=== PATIENT | female | born 1975 ===

== ENCOUNTER 2017-11-11 15:51 | Emergency (ER) | payer MEDICAID ==
[2017-11-11 15:51] VITALS: BMI 44.2
[2017-11-11 16:21] VITALS: BP 109/74; PULSE 91; RESP 18; TEMP 98; O2SAT 98
--- NOTE | 2017-11-11 17:15 | ED PDOC ---
HPI: Back Time Seen by Provider: 11/11/17 16:29 Chief Complaint (Nursing): Lower Extremity Problem/Injury Chief Complaint (Provider): Back Pain, Toe Pain History Per: Patient History/Exam Limitations: no limitations Onset/Duration Of Symptoms: Days (x 1 week) Current Symptoms Are (Timing): Still Present Additional Complaint(s): Patient presents complaining of pain to the left great toe, and is unsure if trauma occurred. Reports occasional numbness to the toe, and has history of diabetes and chronic neuropathy in this foot. Otherwise: (-) redness, (-) swelling, (-) fever. Patient also complaining of low back pain for 1 week, radiating down left buttock and leg. Otherwise: (-) paresthesias, (-) weakness , (-) abdominal pain, (-) urinary symptoms, (-) acute bowel or bladder dysfunction. PMD: [facility] Past Medical History Reviewed: Historical Data, Nursing Documentation, Vital Signs Vital Signs: Last Vital Signs Temp 98 F 11/11/17 16:18 Pulse 91 H 11/11/17 16:18 Resp 18 11/11/17 16:18 BP 109/74 11/11/17 16:18 Pulse Ox 98 11/11/17 16:18 - Medical History PMH: Asthma, COPD, Depression, Diabetes (type II), HTN, Hypercholesterolemia, Hypothyroidism Denies: Chronic Kidney Disease - Surgical History Surgical History: Cholecystectomy, (x1) - Family History Family History: States: Unknown Family Hx - Social History Current smoker - smoking cessation education provided: Yes Alcohol: None Drugs: Denies - Home Medications Home Medications: Ambulatory Orders Medication Instructions Recorded Aspirin [Aspirin EC] 81 mg PO QPM 05/15/15 Clopidogrel [Plavix] 75 mg PO QPM 05/15/15 Hydrochlorothiazide [HCTZ] 25 mg PO QPM 05/15/15 Sitagliptin Phosphate [Januvia] 100 mg PO QPM 05/15/15 Albuterol HFA [Ventolin HFA 90 2 puff IH Q6H PRN 08/29/16 mcg/actuation (8 g)] Empagliflozin [Jardiance] 10 mg PO QPM 08/29/16 Fenofibrate,Micronized [Lofibra] 134 mg PO QPM 08/29/16 Gabapentin [Neurontin] 900 mg PO HS 08/29/16 Gemfibrozil 600 mg PO BID 08/29/16 Insulin Glargine,Hum.rec.anlog 55 unit SC DAILY 08/29/16 [Jordonnonajoanne Jamesmarixachantale] Benton-3 Fatty Acids/Fish Oil [Fish 1 gm PO QPM 08/29/16 Oil 1,000 mg Capsule] Simvastatin [Zocor] 40 mg PO QPM 08/29/16 Tiotropium [Spiriva] 18 mcg IH DAILY 08/29/16 amLODIPine [Norvasc] 10 mg PO QPM 08/29/16 Insulin Lispro [humALOG] 20 unit SC ACTID #0 08/30/16 Lidocaine 5% [Lidoderm] 1 ea TD DAILY PRN #30 patch 09/18/16 Methocarbamol [Robaxin] 500 mg PO Q8 PRN #30 tab 09/18/16 Tramadol HCl [Ultram] 50 mg PO BID PRN #30 tablet 09/18/16 Cyclobenzaprine [Cyclobenzaprine 10 mg PO TID PRN #15 tab 11/11/17 HCl] Meloxicam [Mobic] 15 mg PO DAILY PRN #30 tab 11/11/17 - Allergies Allergies/Adverse Reactions: Allergies Allergy/AdvReac Type Severity Reaction Status Date / Time Penicillins Allergy ANAPHYLAXIS Verified 08/29/16 15:15 Review of Systems ROS Statement: Except As Marked, All Systems Reviewed And Found Negative Constitutional: Negative for: Fever Genitourinary Female: Negative for: Incontinence Musculoskeletal: Positive for: Back Pain (left lower, radiating down left leg), Foot Pain (left toe pain) Skin: Negative for: Rash, Other (swelling) Neurological: Positive for: Numbness (to left toe). Negative for: Weakness, Other (paresthesias) Physical Exam - Reviewed Nursing Documentation Reviewed: Yes Vital Signs Reviewed: Yes - Physical Exam Comments: GENERAL APPEARANCE: Patient is awake, alert, oriented x 3, in no acute distress. SKIN: Warm, dry; (-) cyanosis. EYES: (-) conjunctival pallor. ENMT: Mucous membranes moist. NECK: (-) tenderness, (-) stiffness, (-) lymphadenopathy. CHEST AND RESPIRATORY: (-) rales, (-) rhonchi, (-) wheezes; breath sounds equal bilaterally. HEART AND CARDIOVASCULAR: (-) irregularity; (-) murmur, (-) gallop. ABDOMEN AND GI: Soft; (-) tenderness; (-) palpable mass. BACK: (+) tenderness to lumbar spine and L paralumbar, (-) deformity. Straight leg raising (-) bilaterally. EXTREMITIES: (+) Tenderness to left buttock, (+) Tenderness to left great toe; (+) Normal ROM, (-) edema, (-) deformity. Distal pulses good bilaterally. NEURO AND PSYCH: Mental status as above. Intact sensation bilaterally; normal strength in extension of the knees, plantar and dorsiflexion of the toes. DTRs symmetric. - ECG O2 Sat by Pulse Oximetry: 98 (RA) Pulse Ox Interpretation: Normal Medical Decision Making Medical Decision Making: Time: 16:57 Initial Plan: --X-Ray LS Spine --X-Ray Left Foot XR SPINE: +osteopenia of L5, no fracture, no dislocation, as read by PA. XR LEFT FOOT: no fracture, no dislocation, as read by PA. Patient advised that official radiology read of XR is still pending and will call the patient if there is any discrepancy within 24 hours. XR results d/w the patient. Diagnosis of sciatica and L foot pain, likely due to DM neuropathy d/w the patient. Advised to follow up with primary care physician in 1-2 days without fail. Advised to take medication as prescribed. Return to the emergency room at any time for any new or worsening symptoms. Patient states she fully agrees with and understands discharge instructions. States that she agrees with the plan and disposition. Verbalized and repeated discharge instructions and plan. I have given the patient opportunity to ask any additional questions. Scribe Attestation: Documented by Antonia Cohen, acting as a scribe for Emeli Romeo PA-C Provider Scribe Attestation: All medical record entries made by the Scribe were at my direction and personally dictated by me. I have reviewed the chart and agree that the record accurately reflects my personal performance of the history, physical exam, medical decision making, and the department course for this patient. I have also personally directed, reviewed, and agree with the discharge instructions and disposition. Disposition - Clinical Impression Clinical Impression: Sciatica, Foot pain, left - Patient ED Disposition Is Patient to be Admitted: No Counseled Patient/Family Regarding: Studies Performed, Diagnosis, Need For Followup, Rx Given - Disposition Disposition: Routine/Home Disposition Time: 18:10 Condition: STABLE Additional Instructions: Thank you for letting us take care of you today. You were treated for sciatica, L foot pain, likely DM neuropthay. The emergency medical care you received today was directed at your acute symptoms. If you were prescribed any medication , please fill it and take as directed. It may take several days for your symptoms to resolve. Return to the Emergency Department if your symptoms worsen , do not improve, or if you have any other problems. Please contact your doctor in 2 days for re-evaluation and follow up. Bring any paperwork you were given at discharge with you along with any medications you are taking to your follow up visit. Our treatment cannot replace ongoing medical care by a primary care provider (PCP) outside of the emergency department. Thank you for allowing the [facility] team to be part of your care today. Prescriptions: Cyclobenzaprine [Cyclobenzaprine HCl] 10 mg PO TID PRN #15 tab PRN Reason: Muscle Spasm Meloxicam [Mobic] 15 mg PO DAILY PRN #30 tab PRN Reason: Pain, Moderate (4-7) Instructions: Sciatica, Diabetic Neuropathy (DC) Forms: [employer] (Irish), [facility] ED School/Work Excuse
--- NOTE | 2017-11-11 18:33 | RAD ---
PROCEDURE: Radiographs of the Lumbar Spine. HISTORY: pain COMPARISON: Lumbar spine radiographs 09/18/2016. FINDINGS: BONES: Normal lumbar curvature is preserved. There is no interval fracture or spondylolisthesis identified. No destructive bony lesion is evident. Diffuse osteopenia suggests osteoporosis. DISC SPACES: Apparent disc height loss is unchanged at L5-S1 remaining moderate with moderate L4-5 disc height loss now evident. OTHER FINDINGS: None. IMPRESSION: Limited degenerative disease L4-5 and L5-S1 without interval fracture or spondylolisthesis evident. Diffuse osteopenia suggests osteoporosis.
--- NOTE | 2017-11-11 18:34 | RAD ---
PROCEDURE: Left Foot Radiographs. HISTORY: pain COMPARISON: None. FINDINGS: BONES: Diffuse osteopenia suggests osteoporosis. No acute fractures identified or destructive bony lesion evident. JOINTS: Joint space narrowing and cortical sclerosis appreciate throughout the interphalangeal joints diffusely with similar pattern present at the midfoot and hindfoot joints diffusely, as well as the 1st metatarsophalangeal joint. . SOFT TISSUES: A small plantar calcaneal spurs identified. OTHER FINDINGS: None. IMPRESSION: No acute fracture, subluxation or dislocation. Relatively diffuse degenerative changes are noted as discussed above. Small plantar calcaneal spur noted.
== END 2017-11-11 18:48 | disposition home or self-care (01) ==
LOC: H.ER 15:51
DX: M54.42 Lumbago with sciatica, left side (principal); M79.672 Pain in left foot; E03.9 Hypothyroidism, unspecified; E11.9 Type 2 diabetes mellitus without complications; E78.00 Pure hypercholesterolemia, unspecified; F32.9 Major depressive disorder, single episode, unspecified; I10 Essential (primary) hypertension; Z79.4 Long term (current) use of insulin; Z79.82 Long term (current) use of aspirin; Z88.0 Allergy status to penicillin

== ENCOUNTER 2017-11-25 11:56 | Emergency (ER) | payer MEDICAID ==
[2017-11-25 11:56] VITALS: BMI 44.2
[2017-11-25 12:21] VITALS: TEMP 97
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
--- NOTE | 2017-11-25 15:10 | RAD ---
PROCEDURE: Radiographs of the Chest and Left Ribs. HISTORY: pain COMPARISON: None available. TECHNIQUE: Frontal radiograph of the chest and multiple oblique radiographs of the left ribs were obtained. FINDINGS: LEFT RIBS: No fracture or focal lesion visualized. LUNGS: Clear. PLEURA: No pneumothorax or pleural fluid. CARDIOVASCULAR: Normal sized heart. No pulmonary vascular congestion. OTHER FINDINGS: None. IMPRESSION: Unremarkable radiographs of the chest and left ribs. No left rib fracture. Concordant results with the preliminary interpretation rendered by the emergency department physician procedure.
--- NOTE | 2017-11-25 15:11 | RAD ---
PROCEDURE: Radiographs of the Lumbar Spine. HISTORY: Pain. No history of recent/ related trauma provided COMPARISON: No prior. FINDINGS: BONES: Normal alignment. No listhesis. No fracture. DISC SPACES: Unremarkable. OTHER FINDINGS: None. IMPRESSION: Unremarkable radiographs of the lumbar spine.
[2017-11-25 15:16] VITALS: BP 115/80; PULSE 75; RESP 16
[2017-11-25 15:24] VITALS: O2SAT 99
== END 2017-11-25 15:44 | disposition home or self-care (01) ==
LOC: H.ER 11:56
DX: S20.212A Contusion of left front wall of thorax, initial encounter (principal); S39.012A Strain of muscle, fascia and tendon of lower back, initial encounter; X50.0XXA Overexertion from strenuous movement or load, initial encounter; Y92.89 Other specified places as the place of occurrence of the external cause; M54.30 Sciatica, unspecified side
CPT/HCPCS: 71101; 72100; 81025; 96372; 99282; J1885

== ENCOUNTER 2018-09-27 15:53 | Emergency (ER) | payer MEDICAID ==
[2018-09-27] MEDS ORDERED: Amoxicillin-Clav 875-125 mg Tab PO ONE (17:21)
[2018-09-27] MEDS ORDERED: Amoxicillin-Clav 875-125 mg Tab PO STA (17:21)
--- NOTE | 2018-09-27 17:22 | ED PDOC ---
HPI: Influenza Time Seen by Provider: 09/27/18 17:10 Chief Complaint: Flu-like Symptoms Chief Complaint (Provider): Flu-like Symptoms History Per: Patient Exam Limitations: no limitations Onset/Duration Of Symptoms: Days Symptoms include: fever, headache, sore throat, cough, nasal congestion, chest pain (tightness), difficulty breathing Additional complaint(s):: 42 y/o female presents to the ED for evaluation of flu-like symptoms. Patient reports of developing a headache associated with right sided ear pain, nasal congestion, shortness of breath, chest tightness, cough and sore throat yesterday. Otherwise, patient denies fever. PMD: [facility] Past Medical History Reviewed: Historical Data, Nursing Documentation, Vital Signs Vital Signs: Last Vital Signs Temp 98.3 F 09/27/18 16:20 Pulse 97 H 09/27/18 16:20 Resp 20 09/27/18 16:20 BP 123/78 09/27/18 16:20 Pulse Ox 100 09/27/18 16:20 - Medical History PMH: No Chronic Diseases - Surgical History Surgical History: No Surg Hx - Family History Family History: States: Unknown Family Hx - Home Medications Home Medications: Ambulatory Orders Medication Instructions Recorded Azithromycin [Z-Jude] 250 mg PO DAILY #6 tab 09/27/18 - Allergies Allergies/Adverse Reactions: Allergies Allergy/AdvReac Type Severity Reaction Status Date / Time Penicillins Allergy SWELLING Verified 09/27/18 16:20 Review of Systems ROS Statement: Except As Marked, All Systems Reviewed And Found Negative Constitutional: Negative for: Fever ENT: Positive for: Ear Pain (right sided), Nose Congestion, Throat Pain Cardiovascular: Positive for: Chest Pain (tightness) Respiratory: Positive for: Cough, Shortness of Breath Physical Exam - Reviewed Nursing Documentation Reviewed: Yes Vital Signs Reviewed: Yes - Physical Exam Appears: Positive for: Uncomfortable Head Exam: Negative for: NORMAL INSPECTION (Tenderness to palpation of the maxillary and frontal sinuses bilaterally) Skin: Positive for: Normal Color, Warm, Dry Eye Exam: Positive for: Normal appearance ENT: Positive for: TM Is/Are (LEFT: Light reflective positive, TMs intact. All landmarks visible and non-erythematous. RIGHT: Light reflective positive, TMs intact. All landmarks visible and non-erythematous.), Pharyngeal Erythema (right sided). Negative for: Tonsillar Exudate, Tonsillar Swelling Neck: Positive for: Normal, Painless ROM (Cervical Nodes at 0) Cardiovascular/Chest: Positive for: Regular Rate, Rhythm. Negative for: Murmur Respiratory: Positive for: Normal Breath Sounds (Lungs clear to auscultation in all 4 ribera. ). Negative for: Respiratory Distress Extremity: Positive for: Normal ROM. Negative for: Deformity Neurologic/Psych: Positive for: Alert, Oriented. Negative for: Motor/Sensory Deficits Medical Decision Making Medical Decision Making: Time: 1721 Impression: Sinusitis Plan: -- Tylenol 650 mg PO -- Motrin 600 mg PO -- Clindamycin 150 mg PO Scribe Attestation: Documented by Lupe Carver, acting as a scribe for Car Carrasquillo PA-C. Provider Scribe Attestation: All medical record entries made by the Scribe were at my direction and personally dictated by me. I have reviewed the chart and agree that the record accurately reflects my personal performance of the history, physical exam, medical decision making, and the department course for this patient. I have also personally directed, reviewed, and agree with the discharge instructions and disposition. - ECG O2 Sat by Pulse Oximetry: 100 Disposition - Clinical Impression Clinical Impression: Sinusitis - Patient ED Disposition Is Patient to be Admitted: No Doctor Will See Patient In The: Office Counseled Patient/Family Regarding: Diagnosis, Need For Followup, Rx Given - [facility] Disposition: Routine/Home Disposition Time: 17:51 Condition: STABLE Prescriptions: Azithromycin [Z-Jude] 250 mg PO DAILY #6 tab Instructions: Sinusitis in Adults, Sinusitis, Adult (DC) Forms: [employer] (Ugandan)
[2018-09-27 18:10] VITALS: BP 124/78; PULSE 72; RESP 18; TEMP 98.2; O2SAT 99
== END 2018-09-27 18:30 | disposition home or self-care (01) ==
LOC: MERGE 15:53 → H.ER 15:53
DX: J32.9 Chronic sinusitis, unspecified (principal); Z88.0 Allergy status to penicillin

== ENCOUNTER 2019-02-11 17:24 | Emergency (ER) | payer MEDICAID ==
[2019-02-11 17:25] VITALS: BMI 44.2
[2019-02-11 17:37] VITALS: TEMP 103
[2019-02-11] MEDS ORDERED: Sodium Chloride 0.9% 1,000 ML IV STA ×2 (18:13→19:06)
--- NOTE | 2019-02-11 18:21 | ED PDOC ---
HPI: Abdomen Time Seen by Provider: 02/11/19 17:51 Chief Complaint (Nursing): Abdominal Pain Chief Complaint (Provider): Abdominal Pain History Per: Patient History/Exam Limitations: no limitations Onset/Duration Of Symptoms: Days (x 2) Current Symptoms Are (Timing): Still Present Location Of Pain/Discomfort: Diffuse Quality Of Discomfort: "Pain" Associated Symptoms: Fever, Nausea, Vomiting Additional Complaint(s): 43 year old female presents to the ED for evaluation of abdominal pain. Patient is s/p gastric sleeve surgery on 02/02/2019. The surgery was performed by Dr. Hsu ([phone]) in [facility]. Yesterday she developed nausea and vomiting with pain. Patient reports she is unable to eat or drink anything without feeling nauseous. Offers no other medical complaints. PMD: Dr. Cespedes Past Medical History Reviewed: Historical Data, Nursing Documentation, Vital Signs Vital Signs: Last Vital Signs Temp 103 F H 02/11/19 17:32 Pulse 110 H 02/11/19 17:32 Resp 16 02/11/19 17:32 BP 96/62 L 02/11/19 17:32 Pulse Ox 97 02/11/19 17:32 Primary Care Provider: Pepe Trotter - Medical History PMH: Asthma, COPD, Depression, Diabetes (type II), HTN, Hypercholesterolemia, Hypothyroidism Denies: Chronic Kidney Disease - Surgical History Surgical History: Cholecystectomy, (x1) - Family History Family History: States: Unknown Family Hx - Social History Current smoker - smoking cessation education provided: No (lives with a smoker) - Home Medications Home Medications: Ambulatory Orders Medication Instructions Recorded Aspirin [Aspirin EC] 81 mg PO QPM 05/15/15 Sitagliptin Phosphate [Januvia] 100 mg PO QPM 05/15/15 Albuterol HFA [Ventolin HFA 90 2 puff IH Q6H PRN 08/29/16 mcg/actuation (8 g)] Empagliflozin [Jardiance] 10 mg PO QPM 08/29/16 Gabapentin [Neurontin] 900 mg PO HS 08/29/16 Gemfibrozil 600 mg PO BID 08/29/16 Insulin Glargine,Hum.rec.anlog 55 unit SC DAILY 08/29/16 [Toujeo Solostar] [place]-3 Fatty Acids/Fish Oil [Fish 1 gm PO QPM 08/29/16 Oil 1,000 mg Capsule] Simvastatin [Zocor] 40 mg PO QPM 08/29/16 Insulin Lispro [humALOG] 20 unit SC ACTID #0 08/30/16 Ondansetron ODT [Zofran ODT] 4 mg PO Q6 #30 odt 02/11/19 - Allergies Allergies/Adverse Reactions: Allergies Allergy/AdvReac Type Severity Reaction Status Date / Time Penicillins Allergy ANAPHYLAXIS Verified 02/11/19 17:33 Review of Systems ROS Statement: Except As Marked, All Systems Reviewed And Found Negative Constitutional: Positive for: Fever. Negative for: Chills Gastrointestinal: Positive for: Nausea, Vomiting, Abdominal Pain. Negative for: Diarrhea Physical Exam - Reviewed Nursing Documentation Reviewed: Yes Vital Signs Reviewed: Yes - Physical Exam Appears: Positive for: No Acute Distress Head Exam: Positive for: ATRAUMATIC, NORMAL INSPECTION, NORMOCEPHALIC Skin: Positive for: Normal Color, Dry Eye Exam: Positive for: EOMI, Normal appearance, PERRL Neck: Positive for: Normal, Painless ROM, Supple Cardiovascular/Chest: Positive for: Regular Rate, Rhythm. Negative for: Murmur Respiratory: Positive for: Normal Breath Sounds. Negative for: Respiratory Distress Gastrointestinal/Abdominal: Positive for: Tenderness (diffuse), Other (intact surgical scars without erythema or drainage). Negative for: Mass, Guarding Extremity: Positive for: Normal ROM (x 4). Negative for: Deformity Neurological/Psych: Positive for: Awake, Alert, Normal Tone, Oriented (x 3). Negative for: Motor/Sensory Deficits - Laboratory Results Result Diagrams: 02/11/19 18:28 02/11/19 18:28 - ECG O2 Sat by Pulse Oximetry: 97 (RA) Pulse Ox Interpretation: Normal Medical Decision Making Medical Decision Makin:13 MDM: workup for complications of gastric sleeve surgery, r/o infection IV fluids, labs, Morphine for pain, Toradol for fever, Zofran for nausea Willl contact surgeon once lab results are back. Scribe Attestation: Documented by Lindsay Ramirez, acting as a scribe for Pao Moon MD. Provider Scribe Attestation: All medical record entries made by the Scribe were at my direction and personally dictated by me. I have reviewed the chart and agree that the record accurately reflects my personal performance of the history, physical exam, medical decision making, and the department course for this patient. I have also personally directed, reviewed, and agree with the discharge instructions and disposition. Disposition - Clinical Impression Clinical Impression: Dehydration, Abdominal pain - Disposition Disposition: Routine/Home Disposition Time: 21:20 Condition: IMPROVED Prescriptions: Ondansetron ODT [Zofran ODT] 4 mg PO Q6 #30 odt Instructions: Dehydration, Adult (DC) Forms: Rezzcard (Hungarian) Print Language: MALTESE
[2019-02-11 18:38] LABS: VENOUS BLOOD GAS BASE EXCESS 1.2 mmol/L (0.0-2.0); VENOUS BLOOD GAS PCO2 41 mmHg (40-60); VENOUS BLOOD GAS PO2 26 mm/Hg (30-55); VENOUS BLOOD PH 7.41 (7.32-7.43)
[2019-02-11 18:42] LABS: ALB/GLOB RATIO 1.1 (1.0-2.1); ALBUMIN 4.2 g/dL (3.5-5.0); ALT/SGPT 30 U/L (9-52); AST/SGOT 26 U/L (14-36); BLOOD UREA NITROGEN 21 mg/dl (7-17); CALCIUM 8.9 mg/dL (8.4-10.2); GFR NON-AFRICAN AMERICAN 54; LIPASE 122 U/L (23-300)
[2019-02-11 18:46] LABS: BASO # 0.1 K/uL (0.0-0.2); BASO % 0.4 % (0.0-2.0); EOS % 0.1 % (0.0-4.0); HEMOGLOBIN 12.9 g/dL (12.0-16.0); LYMPH # 0.7 K/uL (1.0-4.3); LYMPH % 5.2 % (20.0-40.0); MEAN CORPUSCULAR HEMOGLOBIN 26.8 pg (27.0-31.0); MEAN CORPUSCULAR HGB CONC 31.2 g/dL (33.0-37.0); MEAN PLATELET VOLUME 10.2 fl (7.2-11.7); MONO # 1.9 K/uL (0.0-0.8); MONO % 14.3 % (0.0-10.0); NEUT # 10.6 K/uL (1.8-7.0); NRBC % 0.1 % (0.0-0.0); PLATELET COUNT 198 K/uL (130-400); RBC 4.83 Mil/uL (3.80-5.20); RED CELL DISTRIBUTION WIDTH 14.9 % (11.5-14.5)
[2019-02-11 18:50] LABS: MEAN CELL VOLUME 85.9 fl (81.0-99.0); WHITE BLOOD COUNT 13.3 K/uL (4.8-10.8)
[2019-02-11 19:49] LABS: BANDS 1 % (0-2); LYMPHOCYTE 6 % (20-50); MONOCYTE 14 % (0-10); NEUTROPHIL 79 % (42-75); PLATELET ESTIMATE NORMAL (NORMAL); TOTAL CELLS COUNTED 100
[2019-02-11 22:51] VITALS: BP 88/44; PULSE 79; RESP 16
--- NOTE | 2019-02-12 13:23 | RAD ---
Date of service: 02/11/2019 HISTORY: possible admission COMPARISON: Comparison chest dated 11/25/2017. TECHNIQUE: 1 view obtained. FINDINGS: LUNGS: Poor inspiration with low lung volumes common crowded bronchovascular markings and mild bibasilar atelectasis. PLEURA: No significant pleural effusion identified, no pneumothorax apparent. CARDIOVASCULAR: No aortic atherosclerotic calcification present. Normal cardiac size. No pulmonary vascular congestion. OSSEOUS STRUCTURES: No significant abnormalities. VISUALIZED UPPER ABDOMEN: Normal. OTHER FINDINGS: None. IMPRESSION: Poor inspiration with low lung volumes common crowded bronchovascular markings and mild bibasilar atelectasis.
[2019-02-14 17:18] VITALS: O2SAT 97
== END 2019-02-11 22:51 | disposition home or self-care (01) ==
LOC: H.ER 17:24
DX: E86.0 Dehydration (principal); R10.9 Unspecified abdominal pain; E11.9 Type 2 diabetes mellitus without complications; I10 Essential (primary) hypertension; Z86.59 Personal history of other mental and behavioral disorders; J45.909 Unspecified asthma, uncomplicated
CPT/HCPCS: 71045; 80053; 82803; 83690; 85025; 87040; 96361; 96374; 96375; 99284; J1885; J2270; J2405; J7030

== ENCOUNTER 2019-02-12 19:43 | Inpatient (IN) | payer MEDICAID ==
[2019-02-12 19:47] VITALS: BMI 41.8
[2019-02-12] MEDS ORDERED: Sodium Chloride 0.9% 1,000 ML IV STA ×3 (20:18→23:58)
--- NOTE | 2019-02-12 20:24 | ED PDOC ---
HPI:Nausea, Vomiting, Diarrhea Time Seen by Provider: 02/12/19 20:07 Chief Complaint (Nursing): GI Problem Chief Complaint (Provider): vomiting History Per: Patient History/Exam Limitations: no limitations Onset/Duration Of Symptoms: Days (3) Current Symptoms Are (Timing): Still Present Additional Complaint(s): 43 y/o female presents for evaluation of nausea and vomiting x 3 days. Patient states she is status-post gastric sleeve surgery on 02/02/[address] Hsu at [place]. Patient states she has been on a liquid diet but since vomiting started she is not able to keep liquids down and feels "dehydrated". Patent reports headache, dizziness, and generalized weakness. Patient states she has not urinated in two days. Patient was evaluated for same in ED yesterday, prescribed anti-nausea medications which she states is not helping. Patient states she spoke with her surgeon today and was advised to go to [facility] ED for dehydration but patient states she came here instead because she "couldn't make it that far". Denies neck stiffness, chest pain, shortness of breath, palpitations. Last bowel movement this morning, which was "watery" as per patient. Past Medical History Reviewed: Historical Data, Nursing Documentation, Vital Signs Vital Signs: Last Vital Signs Temp 103.2 F H 02/12/19 19:46 Pulse 101 H 02/12/19 19:46 Resp 18 02/12/19 19:46 BP 94/54 L 02/12/19 19:46 Pulse Ox 96 02/12/19 19:46 Primary Care Provider: Pepe Trotter - Medical History PMH: Asthma, COPD, Depression, Diabetes (type II), HTN, Hypercholesterolemia, Hypothyroidism Denies: Chronic Kidney Disease - Surgical History Surgical History: Cholecystectomy, (x1) - Family History Family History: States: Unknown Family Hx - Home Medications Home Medications: Ambulatory Orders Medication Instructions Recorded Aspirin [Aspirin EC] 81 mg PO QPM 05/15/15 Sitagliptin Phosphate [Januvia] 100 mg PO QPM 05/15/15 Albuterol HFA [Ventolin HFA 90 2 puff IH Q6H PRN 08/29/16 mcg/actuation (8 g)] Empagliflozin [Jardiance] 10 mg PO QPM 08/29/16 Gabapentin [Neurontin] 900 mg PO HS 08/29/16 Gemfibrozil 600 mg PO BID 08/29/16 Insulin Glargine,Hum.rec.anlog 55 unit SC DAILY 08/29/16 [Rachell Jamesmar[place]antale] [place]-3 Fatty Acids/Fish Oil [Fish 1 gm PO QPM 08/29/16 Oil 1,000 mg Capsule] Simvastatin [Zocor] 40 mg PO QPM 08/29/16 Insulin Lispro [humALOG] 20 unit SC ACTID #0 08/30/16 Ondansetron ODT [Zofran ODT] 4 mg PO Q6 #30 odt 02/11/19 - Allergies Allergies/Adverse Reactions: Allergies Allergy/AdvReac Type Severity Reaction Status Date / Time Penicillins Allergy ANAPHYLAXIS Verified 02/11/19 17:33 Review of Systems ROS Statement: Except As Marked, All Systems Reviewed And Found Negative Gastrointestinal: Positive for: Nausea, Vomiting, Abdominal Pain Physical Exam - Reviewed Nursing Documentation Reviewed: Yes Vital Signs Reviewed: Yes - Physical Exam Appears: Positive for: Well, Non-toxic, Uncomfortable Head Exam: Positive for: ATRAUMATIC, NORMAL INSPECTION, NORMOCEPHALIC Skin: Positive for: Normal Color Eye Exam: Positive for: Normal appearance ENT: Positive for: Normal ENT Inspection Cardiovascular/Chest: Positive for: Regular Rate, Rhythm Respiratory: Positive for: Normal Breath Sounds Gastrointestinal/Abdominal: Positive for: Bowel Sounds, Soft, Tenderness (suprapubic), Other (surgical incision sites dry; no surrounding erythema, drainage noted. ecchymosis noted to lower abdomen; no fluctuance, crepitus, or tenderness noted). Negative for: Distended, Guarding Back: Positive for: Normal Inspection Extremity: Positive for: Normal ROM Neurological/Psych: Positive for: Awake, Alert, Oriented (x3) - Laboratory Results Result Diagrams: 02/12/19 21:08 02/12/19 21:08 - ECG ECG: Positive for: Viewed By Me (reviewed by ED attending) ECG Rhythm: Positive for: Sinus Rhythm O2 Sat by Pulse Oximetry: 96 - Progress ED Course And Treament: -upreg -udip -accucheck -cbc -cmp -lipase -lactic acid -blood culture -urinalysis -urine culture -abd/pelvis CT -IV NS bolus -IV reglan -PO tylenol EXAM: CT Abdomen and Pelvis with IV contrast CLINICAL HISTORY: Fever, vomiting h/o gastric sleeve 02-02-2019 TECHNIQUE: Axial computed tomography images of the abdomen and pelvis with intravenous contrast. 842.74 mGy-cm CONTRAST: With; [id number] 95ML COMPARISON: None provided. FINDINGS: LUNG BASES: The lung bases appear clear. No pleural effusions are seen. LIVER: There is hepatomegaly noted. The liver measured approximately 17.6 cm in the midclavicular line. There is associated hepatic steatosis present. GALLBLADDER AND BILE DUCTS: Status post cholecystectomy. No biliary ductal dilatation is evident. PANCREAS: Unremarkable. SPLEEN: Unremarkable. ADRENAL GLANDS: Unremarkable. KIDNEYS, URETERS, AND BLADDER: Both kidneys are normal in size and position. There is right perinephric haziness noted thought compatible with right pyelonephritis. There is no hydronephrosis or hydroureter. No urinary calculi are seen. The urinary bladder is normal in size and configuration. There is mild bladder wall thickening noted and perivesical haziness noted thought compatible with cystitis. STOMACH AND BOWEL: The presence of a gastric sleeve is noted. No evidence of bowel obstruction. There is mucosal wall thickening of the small intestinal tract with fluid noted in its lumen thought compatible with diffuse enteritis. Additionally, mucosal wall thickening and fluid in the lumen are seen in the colon; most pronounced in the ascending colon compatible with colitis. Infectious or inflammatory etiologies are thought most likely. APPENDIX: No evidence of acute appendicitis on CT examination. PERITONEUM: No free fluid. No free air. A moderate sized umbilical hernia is noted containing fat. LYMPH NODES: No lymphadenopathy is evident. REPRODUCTIVE: Unremarkable as visualized. VASCULATURE: No evidence of abdominal aortic aneurysm. Moderate atherosclerotic vascular plaquing is present. BONES: No aggressive appearing osseous lesion. No acute osseous pathology evident. SOFT TISSUES: A collection of gas bubbles is seen in the supraumbilical midline abdominal wall. This could be subsequent to recent injection of medication; however, a fomenting abscess cannot be entirely excluded. IMPRESSION: 1. Evidence of diffuse enterocolitis as described above. 2. Evidence of cystitis and right pyelonephritis. 3. Hepatomegaly with associated steatosis. 4. A supraumbilical midline collection of gas bubbles is noted. This could be subsequent to recent medication injection. Fomenting abscess cannot be entirely excluded. 5. Status post cholecystectomy. 6. A gastric sleeve is present. Case discussed with ED attending Dr. Vera; will admit for IV abx and obtain am surgical consult for midline collection findings on CT Case discussed with Mark Baird [facility]ALONE DIVER for admission Case discussed with Dr. Patino, surgical assistant certified on-call, for am consult regarding supraumbilical "gas bubbles" Disposition - Clinical Impression Clinical Impression: Sepsis, Pyelonephritis, Enterocolitis, Dehydration - Patient ED Disposition Is Patient to be Admitted: Yes - Disposition Disposition Time: 00:30 Condition: FAIR
[2019-02-12 21:38] LABS: ALB/GLOB RATIO 1.1 (1.0-2.1); ALBUMIN 3.5 g/dL (3.5-5.0); CALCIUM 8.1 mg/dL (8.4-10.2)
[2019-02-12 21:40] LABS: BASO # 0.1 K/uL (0.0-0.2); BASO % 0.6 % (0.0-2.0); EOS % 0.2 % (0.0-4.0); LYMPH # 0.5 K/uL (1.0-4.3); LYMPH % 5.5 % (20.0-40.0); MEAN CELL VOLUME 84.5 fl (81.0-99.0); MEAN CORPUSCULAR HEMOGLOBIN 26.7 pg (27.0-31.0); MEAN CORPUSCULAR HGB CONC 31.6 g/dL (33.0-37.0); MEAN PLATELET VOLUME 10.7 fl (7.2-11.7); MONO # 1.5 K/uL (0.0-0.8); MONO % 15.1 % (0.0-10.0); NEUT # 7.8 K/uL (1.8-7.0); NEUT % 78.6 % (50.0-75.0); RBC 4.07 Mil/uL (3.80-5.20); RED CELL DISTRIBUTION WIDTH 14.9 % (11.5-14.5); WHITE BLOOD COUNT 9.9 K/uL (4.8-10.8)
[2019-02-12 21:48] LABS: HEMOGLOBIN 10.9 g/dL (12.0-16.0)
[2019-02-12] MEDS ORDERED: Sodium Chloride 0.9% 50 ML IV ONE (21:50)
[2019-02-12] MEDS ORDERED: Iodixanol 320 MG/ML 100 ML BOTTLE IV ONE (21:50)
[2019-02-12] MEDS ORDERED: Ciprofloxacin 400mg/200ml D5W 400 MG/200 ML BAG IV ONE (23:11)
[2019-02-12] MEDS ORDERED: Ciprofloxacin 400mg/200ml D5W 400 MG/200 ML BAG IVPB ONE (23:51)
[2019-02-12 23:55] LABS: SQUAMOUS EPITHIAL 1 /hpf (0-5); URINE BACTERIA MOD (<OCC); URINE BILIRUBIN NEGATIVE (NEGATIVE); URINE BLOOD MODERATE (NEGATIVE); URINE CLARITY CLOUDY (Clear); URINE COLOR AMBER (YELLOW); URINE GLUCOSE (UA) 50 mg/dL (NEGATIVE); URINE LEUKOCYTE ESTERASE LARGE Leu/uL (Negative); URINE PROTEIN 100 mg/dL (NEGATIVE); WBC CLUMPS MOD /hpf
[2019-02-13] MEDS ORDERED: Albuterol HFA 90 mcg/actuation (8 g) IH PRN (06:43)
--- NOTE | 2019-02-13 06:48 | CP.PCM.CON ---
<Finesse Suarez - Last Filed: 02/13/19 09:55> History of Present Illness - History of Present Illness History of Present Illness: General Surgery Consult Note for Dr. Beckett Reason for consult: suspected incisional abscess 43F with PMH that includes morbid obestiy, s/p Laparoscopic sleeve gastrectomy, HTN, DM, Hypercholesterolemia, Hypothyroidism who was admitted for UTI/pyelonephritis. Patient states she had Laparoscopic sleeve gastrectomy on 02/02/[address] Hsu at [place]. Patient states she has been on B1 diet and compliant. She reports anorexia, decreased oral intake, and nausea/vomiting since the procedure. She reports that she feels "dehydrated". Patent also states she has been experiencing headache, dizziness, and generalized weakness. She has not urinated in two days. She presented yesterday to ED and was prescribed medications for nausea then sent home. She states those medications did not help. Patient states she spoke with her surgeon and was advised to go to [facility] ED but patient states she came here instead because she "couldn't make it that far". Admits to chills, fatigue and diarrhea. Denies fever, cp , SOB, abd pain, constipation, incontinence, numbness/tingling, urinary frequency/urgency, or dysuria. PMD : Pepe Trotter PMH: Asthma, COPD, Depression, Diabetes (type II), HTN, Hypercholesterolemia, Hypothyroidism PSH: Laparoscopic sleeve gastrectomy, cholecystectomy, (x1) ALL: PCN Review of Systems - Review of Systems All systems: reviewed and no additional remarkable complaints except (as per HPI) Past Patient History - Infectious Disease Hx of Infectious Diseases: None - Past Medical History & Family History Past Medical History?: Yes - Past Social History Smoking Status: Former Smoker - CARDIAC Hx Hypercholesterolemia: Yes Hx Hypertension: Yes - PULMONARY Hx Asthma: Yes Hx Chronic Obstructive Pulmonary Disease (COPD): Yes - NEUROLOGICAL Hx Neurological Disorder: No - HEENT Hx HEENT Problems: Yes Other/Comment: Use Eyeglasses - RENAL Hx Chronic Kidney Disease: No - ENDOCRINE/METABOLIC Hx Hypothyroidism: Yes - HEMATOLOGICAL/ONCOLOGICAL Hx Blood Disorders: No - INTEGUMENTARY Hx Dermatological Problems: No - MUSCULOSKELETAL/RHEUMATOLOGICAL Hx Musculoskeletal Disorders: Yes Hx Falls: No - GASTROINTESTINAL Hx Gastrointestinal Disorders: No - GENITOURINARY/GYNECOLOGICAL Hx Genitourinary Disorders: No - PSYCHIATRIC Hx Depression: Yes Hx Substance Use: No - SURGICAL HISTORY Hx Cholecystectomy: Yes - ANESTHESIA Hx Anesthesia: Yes Hx Anesthesia Reactions: No Hx Malignant Hyperthermia: No Meds Allergies/Adverse Reactions: Allergies Allergy/AdvReac Type Severity Reaction Status Date / Time Penicillins Allergy ANAPHYLAXIS Verified 02/11/19 17:33 - Medications Medications: Current Medications Albuterol (Ventolin Hfa 90 Mcg/Actuation (8 G)) 2 puff IH Q6H PRN PRN Reason: Shortness of Breath Aspirin (Ecotrin) 81 mg PO QPM [facility] Gabapentin (Neurontin) 900 mg PO HS [facility] Gemfibrozil (Lopid) 600 mg PO BID [facility] Home Med (Empagliflozin [Jardiance]) 10 mg PO QPM [facility] Home Med (Insulin Glargine,Hum.Rec.Anlog [Toujeo Solostar]) 55 unit SC DAILY [facility] Home Med ([place]-3 Fatty Acids/Fish Oil [Fish Oil 1,000 Mg Capsule]) 1 gm PO QPM [facility] Home Med (Simvastatin [Zocor]) 40 mg PO QPM [facility] Sodium Chloride (Sodium Chloride 0.9%) 1,000 mls @ 100 mls/hr IV .Q10H STA Stop: 02/13/19 09:57 Last Admin: 02/13/19 02:52 Dose: 100 mls/hr Insulin Human Lispro (Humalog) 20 units SC ACTID [facility] Ondansetron HCl (Zofran Inj) 4 mg IVP Q4 PRN PRN Reason: Nausea/Vomiting Stop: 02/13/19 07:00 Sitagliptin Phosphate (Januvia) 100 mg PO QPM [facility] Physical Exam - Constitutional Appears: No Acute Distress - Head Exam Head Exam: ATRAUMATIC, NORMOCEPHALIC - Eye Exam Eye Exam: EOMI, Normal appearance - ENT Exam ENT Exam: Mucous Membranes Dry - Respiratory Exam Respiratory Exam: NORMAL BREATHING PATTERN - Cardiovascular Exam Cardiovascular Exam: REGULAR RHYTHM - GI/Abdominal Exam GI & Abdominal Exam: Hernia (umbilical), Normal Bowel Sounds, Soft. absent: Distended, Firm, Guarding, Rebound, Rigid, Tenderness Additional comments: supraumbilical incision with bruising and dermabond - no evidence of fluctuance, warmth, or induration - Extremities Exam Extremities exam: Positive for: normal capillary refill, pedal pulses present - Back Exam Back exam: absent: CVA tenderness (L), CVA tenderness (R) - Neurological Exam Neurological exam: Alert, Oriented x3 - Psychiatric Exam Psychiatric exam: Normal Affect, Normal Mood - Skin Skin Exam: Dry, Intact, Warm Results - Vital Signs Recent Vital Signs: Last Vital Signs Temp 98.8 F 02/13/19 04:35 Pulse 85 02/13/19 04:35 Resp 20 02/13/19 04:35 BP 111/73 02/13/19 04:35 Pulse Ox 97 02/13/19 04:35 - Labs Result Diagrams: 02/12/19 21:08 02/13/19 08:20 Labs: Laboratory Results - last 24 hr 02/12/19 02/12/19 02/12/19 20:44 21:08 21:08 WBC 9.9 RBC 4.07 Hgb 10.9 L D Hct 34.4 MCV 84.5 MCH 26.7 L MCHC 31.6 L RDW 14.9 H Plt Count 146 MPV 10.7 Neut % (Auto) 78.6 H Lymph % (Auto) 5.5 L [place] % (Auto) 15.1 H Eos % (Auto) 0.2 Baso % (Auto) 0.6 Neut # (Auto) 7.8 H Lymph # (Auto) 0.5 L [place] # (Auto) 1.5 H Eos # (Auto) 0.0 Baso # (Auto) 0.1 Sodium 136 Potassium 3.4 L Chloride 99 Carbon Dioxide 23 Anion Gap 17 BUN 25 H Creatinine 1.3 H Est GFR ( Amer) 54 Est GFR (Non-Af Amer) 44 POC Glucose (mg/dL) 292 H Random Glucose 278 H Lactic Acid Calcium 8.1 L Total Bilirubin 0.9 AST 29 ALT 33 Alkaline Phosphatase 70 Total Protein 6.8 Albumin 3.5 Globulin 3.2 Albumin/Globulin Ratio 1.1 Lipase 79 Urine Color Urine Clarity Urine pH Ur Specific [place] Urine Protein Urine Glucose (UA) Urine Ketones Urine Blood Urine Nitrate Urine Bilirubin Urine Urobilinogen Ur Leukocyte Esterase Urine RBC (Auto) Urine WBC Clumps (Auto) Urine Microscopic WBC Ur Squamous Epith Cells Urine Bacteria Hyaline Casts 02/12/19 02/12/19 02/13/19 21:08 23:40 01:59 WBC RBC Hgb Hct MCV MCH MCHC RDW Plt Count MPV Neut % (Auto) Lymph % (Auto) [place] % (Auto) Eos % (Auto) Baso % (Auto) Neut # (Auto) Lymph # (Auto) [place] # (Auto) Eos # (Auto) Baso # (Auto) Sodium Potassium Chloride Carbon Dioxide Anion Gap BUN Creatinine Est GFR ( Amer) Est GFR (Non-Af Amer) POC Glucose (mg/dL) 279 H Random Glucose Lactic Acid 1.4 Calcium Total Bilirubin AST ALT Alkaline Phosphatase Total Protein Albumin Globulin Albumin/Globulin Ratio Lipase Urine Color [place] Urine Clarity Cloudy Urine pH 6.0 Ur Specific [place] 1.030 Urine Protein 100 Urine Glucose (UA) 50 Urine Ketones Trace Urine Blood Moderate Urine Nitrate Negative Urine Bilirubin Negative Urine Urobilinogen 4.0 H Ur Leukocyte Esterase Large Urine RBC (Auto) 16 H Urine WBC Clumps (Auto) Mod H Urine Microscopic WBC 412 H Ur Squamous Epith Cells 1 Urine Bacteria Mod H Hyaline Casts 3-5 H 02/13/19 05:26 WBC RBC Hgb Hct MCV MCH MCHC RDW Plt Count MPV Neut % (Auto) Lymph % (Auto) [place] % (Auto) Eos % (Auto) Baso % (Auto) Neut # (Auto) Lymph # (Auto) [place] # (Auto) Eos # (Auto) Baso # (Auto) Sodium Potassium Chloride Carbon Dioxide Anion Gap BUN Creatinine Est GFR ( Amer) Est GFR (Non-Af Amer) POC Glucose (mg/dL) 183 H Random Glucose Lactic Acid Calcium Total Bilirubin AST ALT Alkaline Phosphatase Total Protein Albumin Globulin Albumin/Globulin Ratio Lipase Urine Color Urine Clarity Urine pH Ur Specific [place] Urine Protein Urine Glucose (UA) Urine Ketones Urine Blood Urine Nitrate Urine Bilirubin Urine Urobilinogen Ur Leukocyte Esterase Urine RBC (Auto) Urine WBC Clumps (Auto) Urine Microscopic WBC Ur Squamous Epith Cells Urine Bacteria Hyaline Casts Assessment & Plan - Assessment and Plan (Free Text) Assessment: 43 F s/p Laparoscopic sleeve gastrectomy on 02/02 who presents with UTI/pyelonephritis found to have post surgical skin changes on CT abd/pelvis Plan: -post surgical changes in skin -no evidence of abscess -IV abx for UTI/pyelo -IVF -anti-emetics PRN -No surgical intervention needed at this time -Medical management as per primary -Further recommendations as per Dr. Sujit Suarez PGY2 - Date & Time Date: 02/13/19 Time: 07:30 <Shivam Beckett - Last Filed: 02/14/19 17:40> Meds - Medications Medications: Current Medications Acetaminophen (Tylenol 325mg Tab) 650 mg PO Q4 PRN PRN Reason: Fever >100.4 F Last Admin: 02/14/19 16:02 Dose: 650 mg Albuterol (Ventolin Hfa 90 Mcg/Actuation (8 G)) 2 puff IH Q6H PRN PRN Reason: Shortness of Breath Aspirin (Ecotrin) 81 mg PO QPM [facility] Last Admin: 02/13/19 17:04 Dose: 81 mg Atorvastatin Calcium (Lipitor) 20 mg PO QPM [facility] Last Admin: 02/13/19 17:05 Dose: 20 mg Gabapentin (Neurontin) 300 mg PO TID [facility] Last Admin: 02/14/19 16:01 Dose: 300 mg Gemfibrozil (Lopid) 600 mg PO BID [facility] Last Admin: 02/14/19 16:03 Dose: 600 mg Metronidazole (Flagyl 500mg/100ml Ns) 100 mls @ 100 mls/hr IVPB Q8 [facility]; Protocol Last Admin: 02/14/19 16:04 Dose: 100 mls/hr Ciprofloxacin (Cipro 400mg/200ml Dsw) 400 mg in 200 mls @ 200 mls/hr IVPB Q12 [facility]A; Protocol Last Admin: 02/14/19 11:24 Dose: 200 mls/hr Oral Electrolytes (Kcl 40meq/ 0.9% 1l) 1,000 mls @ 100 mls/hr IV .Q10H [facility] Stop: 02/15/19 09:18 Last Admin: 02/14/19 13:04 Dose: 100 mls/hr Insulin Detemir (Levemir) 20 units SC HS [facility] Insulin Human Lispro (Humalog) 6 units SC ACTID [facility] Insulin Human Lispro (Humalog) 0 units SC ACHS [facility] Lactobacillus Acidophilus (Bacid Acidophilus) 1 cap PO BID [facility] Last Admin: 02/14/19 16:01 Dose: 1 cap Metoclopramide HCl (Reglan) 10 mg IVP Q6 PRN PRN Reason: Nausea/Vomiting Last Admin: 02/14/19 14:56 Dose: 10 mg Multivitamins/Minerals (Therapeutic-M Tab) 1 tab PO DAILY [facility] Last Admin: 02/14/19 11:26 Dose: 1 tab Nqvdh-[id number] Ethyl Esters (Lovaza) 1 gm PO QPM [facility] Last Admin: 02/13/19 17:05 Dose: 1 gm Sitagliptin Phosphate (Januvia) 100 mg PO DAILY [facility] Vancomycin HCl (Vancocin (Oral/Rectal Use)) 250 mg PO Q6H [facility]; Protocol Last Admin: 02/14/19 13:06 Dose: 250 mg Results - Vital Signs Recent Vital Signs: Last Vital Signs Temp 100.8 F H 02/14/19 17:15 Pulse 83 02/14/19 15:52 Resp 16 02/14/19 15:52 BP 138/80 02/14/19 15:52 Pulse Ox 99 02/14/19 15:52 - Labs Result Diagrams: 02/14/19 04:35 02/14/19 04:35 Labs: Laboratory Results - last 24 hr 02/13/19 02/13/19 02/14/19 16:47 21:14 04:35 WBC 4.9 RBC 3.91 Hgb 10.5 L Hct 32.3 L MCV 82.6 MCH 26.8 L MCHC 32.4 L RDW 14.6 H Plt Count 139 Sodium Potassium Chloride Carbon Dioxide Anion Gap BUN Creatinine Est GFR ( Amer) Est GFR (Non-Af Amer) POC Glucose (mg/dL) 211 H Random Glucose Calcium C. difficile Ag & Toxin Positive antigen 02/14/19 02/14/19 02/14/19 04:35 06:39 10:48 WBC RBC Hgb Hct MCV MCH MCHC RDW Plt Count Sodium 139 Potassium 3.2 L Chloride 106 Carbon Dioxide 26 Anion Gap 10 BUN 12 Creatinine 0.7 Est GFR ( Amer) > 60 Est GFR (Non-Af Amer) > 60 POC Glucose (mg/dL) 114 H 55 L Random Glucose 112 H Calcium 8.2 L C. difficile Ag & Toxin 02/14/19 11:35 WBC RBC Hgb Hct MCV MCH MCHC RDW Plt Count Sodium Potassium Chloride Carbon Dioxide Anion Gap BUN Creatinine Est GFR ( Amer) Est GFR (Non-Af Amer) POC Glucose (mg/dL) 76 Random Glucose Calcium C. difficile Ag & Toxin Assessment & Plan - Assessment and Plan (Free Text) Plan: seen at bedside, s/p sleeve gastrectomy on 02/02. General surgery consulted for evaluation of abscess to incision site. Pt reports minimal discomfort to area, no drainage. gen: awake, alert, NAD heent: nc/at, eomi, perrla no acute respiratory distress abd: soft, obese, NT, lap port incisions healing well, minimal discomfort to supraumbilical port site, no drainage or fluctuance, umbilical hernia -cont medical management for pylonephritis -diet as tolerated -CT reviewed no evidence of abscess, post op change -no acute surgical intervention, surgery will sign off reconsult prn
[2019-02-13 08:51] LABS: ALBUMIN 3.3 g/dL (3.5-5.0); ALT/SGPT 35 U/L (9-52); AST/SGOT 28 U/L (14-36); BLOOD UREA NITROGEN 19 mg/dl (7-17); CALCIUM 8.1 mg/dL (8.4-10.2); GFR NON-AFRICAN AMERICAN > 60
[2019-02-13] MEDS ORDERED: Ciprofloxacin 400mg/200ml D5W 400 MG/200 ML BAG IVPB SCH (09:00)
[2019-02-13] MEDS ORDERED: INSULIN GLARGINE HUM REC ANLOG 55 UNIT SC SCH (09:00)
[2019-02-13] MEDS: Insulin Lispro (humaLOG) 100 Units/ml Inj SC SCH ×3 (09:07→17:07)
--- NOTE | 2019-02-13 10:39 | CT ---
Date of service: 02/12/2019 PROCEDURE: CT Abdomen and Pelvis with contrast HISTORY: fever, vomiting h/o gastric sleeve 02/02/19 COMPARISON: None. TECHNIQUE: Contrast dose: 95 mL Visipaque 320 Radiation dose: Total exam DLP = 842.74 mGy-cm. This CT exam was performed using one or more of the following dose reduction techniques: Automated exposure control, adjustment of the mA and/or kV according to patient size, and/or use of iterative reconstruction technique. FINDINGS: LOWER THORAX: Unremarkable. LIVER: Unremarkable. No gross lesion or ductal dilatation. GALLBLADDER AND BILE DUCTS: Status post cholecystectomy PANCREAS: Unremarkable. No gross lesion or ductal dilatation. SPLEEN: Unremarkable. ADRENALS: Unremarkable. No mass. KIDNEYS AND URETERS: Multifocal absent cortical enhancement in the right kidney consistent with pyelonephritis. No abscess. No hydronephrosis. No mass or calculus. Unremarkable left kidney. Right perinephric stranding again consistent with pyelonephritis. VASCULATURE: Unremarkable. No aortic aneurysm. There is atherosclerotic calcification of the abdominal aorta. BOWEL: Status post gastric sleeve procedure. No bowel obstruction. No other abnormal bowel loops. APPENDIX: Normal appendix PERITONEUM: No ascites. No pneumoperitoneum. Umbilical hernia containing only mesenteric fat. There is a small amount of subcutaneous gas seen just above the umbilicus of uncertain significance. If the recent procedure was performed laparoscopically, this gas is seen 10 days following laparoscopic procedure. LYMPH NODES: Unremarkable. No enlarged lymph nodes. This is slightly concerning for an infectious process with a gas producing organism and correlation with clinical examination is advised. There is some overlying skin thickening again possibly related to the surgical procedure but the possibility of cellulitis must also be considered. BLADDER: Nondistended. REPRODUCTIVE: Unremarkable uterus. BONES: No acute fracture. OTHER FINDINGS: None. IMPRESSION: Right pyelonephritis. No abscess. No urinary tract obstruction. Status post gastric sleeve. Umbilical hernia containing mesenteric fat. Subcutaneous gas just superior to the umbilicus in the anterior abdominal wall. This may be related to recent laparoscopic procedure. However, this is 10 days postprocedure and is somewhat suspicious for infection with gas producing organism. Please correlate clinically. The preliminary findings for this examination were reported by [facility] at 10:54 p.m. on 02/12/2019. There is discordance of this report with the preliminary findings. There is no evidence of enterocolitis. Diagnosis of cystitis cannot be may reliably in the absence of bladder distention. Subcutaneous gas bubbles as noted in the supraumbilical anterior midline abdominal wall. Not related to medication injection. No evidence of abscess. Possibly related to recent laparoscopic procedure. Please see above.
[2019-02-13 11:35] LABS: HEMOGLOBIN 11.7 g/dL (12.0-16.0); MEAN CELL VOLUME 84.4 fl (81.0-99.0); MEAN CORPUSCULAR HEMOGLOBIN 27.2 pg (27.0-31.0); MEAN CORPUSCULAR HGB CONC 32.2 g/dL (33.0-37.0); RBC 4.31 Mil/uL (3.80-5.20); RED CELL DISTRIBUTION WIDTH 14.9 % (11.5-14.5); WHITE BLOOD COUNT 9.3 K/uL (4.8-10.8)
--- NOTE | 2019-02-13 11:49 | CARD ---
APPROVED REPORT Date of service: 02/12/2019 EKG Measurement Heart [id number] <Conclusion> Normal sinus rhythm Low voltage QRS Inferior infarct, age undetermined Cannot rule out Anterior infarct, age undetermined Abnormal ECG
[2019-02-13] MEDS ORDERED: Potassium Chloride 20 mEq ER Tab PO ONE (11:59)
[2019-02-13] MEDS: Omega-3-Acid Ethyl Esters 1 GM Cap PO SCH (17:05)
[2019-02-13] MEDS: Lactobacillus Acidophilus 500 MU Cap PO SCH (17:47)
--- NOTE | 2019-02-13 18:06 | CP.PCM.HP ---
History of Present Illness - History of Present Illness History of Present Illness: pt admitted for pyelonephritis, n/v after having fever at home. is 1 month s/p bariatric srgery. still w/ fevers and nausea. all bw noted. consults appriciated. imaging reviewed. Present on Admission - Present on Admission Any Indicators Present on Admission: Yes History of Uncontrolled Diabetes: Yes Review of Systems - Constitutional Constitutional: As Per HPI, Fever - Gastrointestinal Gastrointestinal: As Per HPI, Abdominal Pain, Nausea, Vomiting Past Patient History - Infectious Disease Hx of Infectious Diseases: None - Past Medical History & Family History Past Medical History?: Yes - Past Social History Smoking Status: Former Smoker - CARDIAC Hx Hypercholesterolemia: Yes Hx Hypertension: Yes - PULMONARY Hx Asthma: Yes Hx Chronic Obstructive Pulmonary Disease (COPD): Yes - NEUROLOGICAL Hx Neurological Disorder: No - HEENT Hx HEENT Problems: Yes Other/Comment: Use Eyeglasses - RENAL Hx Chronic Kidney Disease: No - ENDOCRINE/METABOLIC Hx Hypothyroidism: Yes - HEMATOLOGICAL/ONCOLOGICAL Hx Blood Disorders: No - INTEGUMENTARY Hx Dermatological Problems: No - MUSCULOSKELETAL/RHEUMATOLOGICAL Hx Musculoskeletal Disorders: Yes Hx Falls: No - GASTROINTESTINAL Hx Gastrointestinal Disorders: No - GENITOURINARY/GYNECOLOGICAL Hx Genitourinary Disorders: No - PSYCHIATRIC Hx Depression: Yes Hx Substance Use: No - SURGICAL HISTORY Hx Cholecystectomy: Yes - ANESTHESIA Hx Anesthesia: Yes Hx Anesthesia Reactions: No Hx Malignant Hyperthermia: No Meds Allergies/Adverse Reactions: Allergies Allergy/AdvReac Type Severity Reaction Status Date / Time Penicillins Allergy ANAPHYLAXIS Verified 02/11/19 17:33 Physical Exam - Constitutional Appears: Well, Non-toxic, No Acute Distress - Head Exam Head Exam: ATRAUMATIC, NORMAL INSPECTION, NORMOCEPHALIC - Eye Exam Eye Exam: EOMI, Normal appearance, PERRL Pupil Exam: NORMAL ACCOMODATION, PERRL - ENT Exam ENT Exam: Mucous Membranes Moist, Normal Exam - Neck Exam Neck exam: Positive for: Normal Inspection - Respiratory Exam Respiratory Exam: Clear to Auscultation Bilateral, NORMAL BREATHING PATTERN - Cardiovascular Exam Cardiovascular Exam: REGULAR RHYTHM, RRR, +S1, +S2 - GI/Abdominal Exam GI & Abdominal Exam: Normal Bowel Sounds, Soft. absent: Tenderness - Extremities Exam Extremities exam: Positive for: normal inspection - Back Exam Back exam: NORMAL INSPECTION - Neurological Exam Neurological exam: Alert, CN II-XII Intact, Normal Gait, Oriented x3, Reflexes Normal - Psychiatric Exam Psychiatric exam: Normal Affect, Normal Mood - Skin Skin Exam: Dry, Intact, Normal Color, Warm Results - Vital Signs Recent Vital Signs: Last Vital Signs Temp 99 F 02/13/19 15:51 Pulse 74 02/13/19 15:51 Resp 18 02/13/19 15:51 BP 99/62 L 02/13/19 15:51 Pulse Ox 95 02/13/19 15:51 - Labs Result Diagrams: 02/14/19 04:35 02/14/19 04:35 Labs: Laboratory Results - last 24 hr 02/12/19 02/12/19 02/12/19 20:44 21:08 21:08 WBC 9.9 RBC 4.07 Hgb 10.9 L D Hct 34.4 MCV 84.5 MCH 26.7 L MCHC 31.6 L RDW 14.9 H Plt Count 146 MPV 10.7 Neut % (Auto) 78.6 H Lymph % (Auto) 5.5 L [place] % (Auto) 15.1 H Eos % (Auto) 0.2 Baso % (Auto) 0.6 Neut # (Auto) 7.8 H Lymph # (Auto) 0.5 L [place] # (Auto) 1.5 H Eos # (Auto) 0.0 Baso # (Auto) 0.1 Sodium 136 Potassium 3.4 L Chloride 99 Carbon Dioxide 23 Anion Gap 17 BUN 25 H Creatinine 1.3 H Est GFR ( Amer) 54 Est GFR (Non-Af Amer) 44 POC Glucose (mg/dL) 292 H Random Glucose 278 H Lactic Acid Calcium 8.1 L Total Bilirubin 0.9 AST 29 ALT 33 Alkaline Phosphatase 70 Total Protein 6.8 Albumin 3.5 Globulin 3.2 Albumin/Globulin Ratio 1.1 Lipase 79 Urine Color Urine Clarity Urine pH Ur Specific [place] Urine Protein Urine Glucose (UA) Urine Ketones Urine Blood Urine Nitrate Urine Bilirubin Urine Urobilinogen Ur Leukocyte Esterase Urine RBC (Auto) Urine WBC Clumps (Auto) Urine Microscopic WBC Ur Squamous Epith Cells Urine Bacteria Hyaline Casts 02/12/19 02/12/19 02/13/19 21:08 23:40 01:59 WBC RBC Hgb Hct MCV MCH MCHC RDW Plt Count MPV Neut % (Auto) Lymph % (Auto) [place] % (Auto) Eos % (Auto) Baso % (Auto) Neut # (Auto) Lymph # (Auto) [place] # (Auto) Eos # (Auto) Baso # (Auto) Sodium Potassium Chloride Carbon Dioxide Anion Gap BUN Creatinine Est GFR ( Amer) Est GFR (Non-Af Amer) POC Glucose (mg/dL) 279 H Random Glucose Lactic Acid 1.4 Calcium Total Bilirubin AST ALT Alkaline Phosphatase Total Protein Albumin Globulin Albumin/Globulin Ratio Lipase Urine Color [place] Urine Clarity Cloudy Urine pH 6.0 Ur Specific [place] 1.030 Urine Protein 100 Urine Glucose (UA) 50 Urine Ketones Trace Urine Blood Moderate Urine Nitrate Negative Urine Bilirubin Negative Urine Urobilinogen 4.0 H Ur Leukocyte Esterase Large Urine RBC (Auto) 16 H Urine WBC Clumps (Auto) Mod H Urine Microscopic WBC 412 H Ur Squamous Epith Cells 1 Urine Bacteria Mod H Hyaline Casts 3-5 H 02/13/19 02/13/19 02/13/19 05:26 08:20 10:45 WBC 9.3 RBC 4.31 Hgb 11.7 L Hct 36.4 MCV 84.4 MCH 27.2 MCHC 32.2 L RDW 14.9 H Plt Count 154 MPV Neut % (Auto) Lymph % (Auto) [place] % (Auto) Eos % (Auto) Baso % (Auto) Neut # (Auto) Lymph # (Auto) [place] # (Auto) Eos # (Auto) Baso # (Auto) Sodium 139 Potassium 3.2 L Chloride 103 Carbon Dioxide 23 Anion Gap 16 BUN 19 H Creatinine 0.9 Est GFR ( Amer) > 60 Est GFR (Non-Af Amer) > 60 POC Glucose (mg/dL) 183 H Random Glucose 169 H Lactic Acid Calcium 8.1 L Total Bilirubin 0.7 AST 28 ALT 35 Alkaline Phosphatase 76 Total Protein 6.6 Albumin 3.3 L Globulin 3.2 Albumin/Globulin Ratio 1.0 Lipase Urine Color Urine Clarity Urine pH Ur Specific [place] Urine Protein Urine Glucose (UA) Urine Ketones Urine Blood Urine Nitrate Urine Bilirubin Urine Urobilinogen Ur Leukocyte Esterase Urine RBC (Auto) Urine WBC Clumps (Auto) Urine Microscopic WBC Ur Squamous Epith Cells Urine Bacteria Hyaline Casts 02/13/19 02/13/19 13:02 16:18 WBC RBC Hgb Hct MCV MCH MCHC RDW Plt Count MPV Neut % (Auto) Lymph % (Auto) [place] % (Auto) Eos % (Auto) Baso % (Auto) Neut # (Auto) Lymph # (Auto) [place] # (Auto) Eos # (Auto) Baso # (Auto) Sodium Potassium Chloride Carbon Dioxide Anion Gap BUN Creatinine Est GFR ( Amer) Est GFR (Non-Af Amer) POC Glucose (mg/dL) 268 H 228 H Random Glucose Lactic Acid Calcium Total Bilirubin AST ALT Alkaline Phosphatase Total Protein Albumin Globulin Albumin/Globulin Ratio Lipase Urine Color Urine Clarity Urine pH Ur Specific [place] Urine Protein Urine Glucose (UA) Urine Ketones Urine Blood Urine Nitrate Urine Bilirubin Urine Urobilinogen Ur Leukocyte Esterase Urine RBC (Auto) Urine WBC Clumps (Auto) Urine Microscopic WBC Ur Squamous Epith Cells Urine Bacteria Hyaline Casts Assessment & Plan (1) DVT prophylaxis Assessment and Plan: scd and ae hose ambulation Status: Acute (2) Enterocolitis Assessment and Plan: cipro Status: Acute (3) Pyelonephritis Assessment and Plan: cipro, ivf Status: Acute (4) Diabetes mellitus type 2 in obese Assessment and Plan: fsbg, riss, home meds, diet control Status: Acute Decision To Admit - Pt Status Changed To: Hospital Disposition Of: Inpatient - Admit Certification Admit to Inpatient:: After my assessment, the patient will require hospitalization for at least two midnights. This is because of the severity of symptoms shown, intensity of services needed, and/or the medical risk in this patient being treated as an outpatient. - . Bed Request Type: Telemetry Admitting Physician: Schuyler De Guzman
[2019-02-13] MEDS: Vancomycin 500 mg (Oral/Rectal USE) PO SCH (20:41)
[2019-02-13] MEDS: Ciprofloxacin 400mg/200ml D5W 400 MG/200 ML BAG IVPB SCH (20:50)
[2019-02-13] MEDS: metroNIDAZOLE 500mg/100ml NS 100 ML IVPB SCH (21:55)
[2019-02-13] MEDS ORDERED: Insulin Detemir 100 Units/ml Inj SC SCH (22:00)
[2019-02-14] MEDS: Vancomycin 500 mg (Oral/Rectal USE) PO SCH ×4 (01:41→20:58)
[2019-02-14] MEDS: metroNIDAZOLE 500mg/100ml NS 100 ML IVPB SCH ×3 (01:42→16:04)
[2019-02-14 05:52] LABS: HEMOGLOBIN 10.5 g/dL (12.0-16.0); MEAN CELL VOLUME 82.6 fl (81.0-99.0); MEAN CORPUSCULAR HEMOGLOBIN 26.8 pg (27.0-31.0); MEAN CORPUSCULAR HGB CONC 32.4 g/dL (33.0-37.0); RBC 3.91 Mil/uL (3.80-5.20); RED CELL DISTRIBUTION WIDTH 14.6 % (11.5-14.5); WHITE BLOOD COUNT 4.9 K/uL (4.8-10.8)
[2019-02-14 05:57] LABS: BLOOD UREA NITROGEN 12 mg/dl (7-17); CALCIUM 8.2 mg/dL (8.4-10.2); GFR NON-AFRICAN AMERICAN > 60
[2019-02-14] MEDS ORDERED: Sodium Chloride 0.9% 500 ML IV ONE (07:48)
[2019-02-14] MEDS: Lactobacillus Acidophilus 500 MU Cap PO SCH ×2 (08:32→16:01)
[2019-02-14] MEDS: Insulin Lispro (humaLOG) 100 Units/ml Inj SC SCH ×4 (08:34→23:06)
--- NOTE | 2019-02-14 09:17 | CP.PCM.PN ---
Subjective - Date & Time of Evaluation Date of Evaluation: 02/14/19 Time of Evaluation: 09:15 - Subjective Subjective: pt in bed c/o dizziness. bp low. pt now admits that her med regimen has changed since bariatricc surgery. no f/c, n/v/d. bw ntoed. Objective - Vital Signs/Intake and Output Vital Signs (last 24 hours): Temp Pulse Resp BP Pulse Ox 99.6 F 69 20 88/50 L 93 L 02/14/19 07:57 02/14/19 07:57 02/14/19 07:57 02/14/19 07:57 02/14/19 07:57 - Medications Medications: Current Medications Acetaminophen (Tylenol 325mg Tab) 650 mg PO Q4 PRN PRN Reason: Fever >100.4 F Last Admin: 02/14/19 05:02 Dose: 650 mg Albuterol (Ventolin Hfa 90 Mcg/Actuation (8 G)) 2 puff IH Q6H PRN PRN Reason: Shortness of Breath Aspirin (Ecotrin) 81 mg PO QPM [facility] Last Admin: 02/13/19 17:04 Dose: 81 mg Atorvastatin Calcium (Lipitor) 20 mg PO QPM [facility] Last Admin: 02/13/19 17:05 Dose: 20 mg Gabapentin (Neurontin) 900 mg PO HS [facility] Last Admin: 02/13/19 21:59 Dose: 900 mg Gemfibrozil (Lopid) 600 mg PO BID [facility] Last Admin: 02/14/19 08:36 Dose: 600 mg Metronidazole (Flagyl 500mg/100ml Ns) 100 mls @ 100 mls/hr IVPB Q8 [facility]; Protocol Last Admin: 02/14/19 08:33 Dose: 100 mls/hr Ciprofloxacin (Cipro 400mg/200ml Dsw) 400 mg in 200 mls @ 200 mls/hr IVPB Q12 [facility]; Protocol Last Admin: 02/13/19 20:50 Dose: 200 mls/hr Insulin Detemir (Levemir) 55 units SC HS [facility] Last Admin: 02/13/19 21:58 Dose: 55 u Insulin Human Lispro (Humalog) 20 units SC ACTID [facility] Last Admin: 02/14/19 08:34 Dose: 20 units Lactobacillus Acidophilus (Bacid Acidophilus) 1 cap PO BID [facility] Last Admin: 02/14/19 08:32 Dose: 1 cap Metoclopramide HCl (Reglan) 10 mg IVP Q6 PRN PRN Reason: Nausea/Vomiting Last Admin: 02/14/19 08:56 Dose: 10 mg Cmurn-1-Bxra Ethyl Esters (Lovaza) 1 gm PO QPM [facility] Last Admin: 02/13/19 17:05 Dose: 1 gm Sitagliptin Phosphate (Januvia) 100 mg PO QPM [facility] Last Admin: 02/13/19 17:08 Dose: 100 mg Vancomycin HCl (Vancocin (Oral/Rectal Use)) 250 mg PO Q6H [facility]; Protocol Last Admin: 02/14/19 08:38 Dose: 250 mg - Labs Labs: 02/14/19 04:35 02/14/19 04:35 - Constitutional Appears: Well, Non-toxic, No Acute Distress - Head Exam Head Exam: ATRAUMATIC, NORMAL INSPECTION, NORMOCEPHALIC - Eye Exam Eye Exam: EOMI, Normal appearance, PERRL Pupil Exam: NORMAL ACCOMODATION, PERRL - ENT Exam ENT Exam: Mucous Membranes Moist, Normal Exam - Neck Exam Neck Exam: Full ROM, Normal Inspection. absent: Lymphadenopathy - Respiratory Exam Respiratory Exam: Clear to Ausculation Bilateral, NORMAL BREATHING PATTERN - Cardiovascular Exam Cardiovascular Exam: REGULAR RHYTHM, RRR, +S1, +S2. absent: Murmur - GI/Abdominal Exam GI & Abdominal Exam: Soft, Normal Bowel Sounds. absent: Tenderness - Extremities Exam Extremities Exam: Full ROM, Normal Capillary Refill, Normal Inspection. absent: Joint Swelling, Pedal Edema - Back Exam Back Exam: NORMAL INSPECTION - Neurological Exam Neurological Exam: Alert, Awake, CN II-XII Intact, Normal Gait, Oriented x3 - Psychiatric Exam Psychiatric exam: Normal Affect, Normal Mood - Skin Skin Exam: Dry, Intact, Normal Color, Warm Assessment and Plan (1) DVT prophylaxis Assessment & Plan: scd and aehose ambulation Status: Acute (2) Enterocolitis Assessment & Plan: c diff toxin positive id cipro and vanco ivf contract precautions Status: Acute (3) Pyelonephritis Assessment & Plan: cipro ivf f/u c/s Status: Acute (4) Diabetes mellitus type 2 in obese Assessment & Plan: riss home meds, fsbg, diet control Status: Acute - Assessment and Plan (Free Text) Assessment: dizziness- 500cc bolus, monitor bp hypokalemia-kcl to add to fluids
[2019-02-14] MEDS ORDERED: Multi Vitamins 15 mL UD Oral Solution PO SCH (09:30)
[2019-02-14] MEDS: Ciprofloxacin 400mg/200ml D5W 400 MG/200 ML BAG IVPB SCH ×2 (11:24→21:36)
[2019-02-14] MEDS: Multivitamin With Minerals Tab PO SCH (11:26)
[2019-02-14] MEDS: KCL 40MEQ/NS 1L 1,000 ML IV SCH ×2 (13:04→19:05)
[2019-02-14] MEDS ORDERED: Insulin Lispro (humaLOG) 100 Units/ml Inj SC SCH (16:30)
[2019-02-14] MEDS: Omega-3-Acid Ethyl Esters 1 GM Cap PO SCH (18:37)
[2019-02-14] MEDS ORDERED: Insulin Detemir 100 Units/ml Inj SC SCH (22:00)
[2019-02-14] MEDS: Insulin Detemir 100 Units/ml Inj SC SCH (23:06)
[2019-02-15] MEDS: metroNIDAZOLE 500mg/100ml NS 100 ML IVPB SCH ×3 (00:34→17:19)
[2019-02-15] MEDS: Vancomycin 500 mg (Oral/Rectal USE) PO SCH ×4 (00:36→19:50)
--- NOTE | 2019-02-15 02:42 | CON ---
DATE: 02/14/2019 ENDOCRINOLOGY CONSULTATION LOCATION: Room 411. HISTORY OF PRESENT ILLNESS: This is a 43-year-old female with a known history of type 2 insulin-requiring diabetes with recent gastric sleeve surgery and presenting here with intractable nausea, dyspepsia, vomiting and generalized body weakness and is now being referred for diabetic evaluation and management. PAST MEDICAL HISTORY: As mentioned above, history of type 2 insulin-requiring diabetes, previously on a higher dose of Levemir given as 55 units at bedtime with Humalog taken as 20 units t.i.d., history of hypertension and dyslipidemia, history of morbid obesity with a recent gastric sleeve surgical procedure done at [facility], history of diffuse osteoarthritis, history of diabetic polyneuropathy with painful lower extremity paresthesias. Her other oral diabetic medications include Januvia given as 100 mg daily and Jardiance given as 10 mg daily. FAMILY HISTORY: Positive for diabetes and hypertension. SOCIAL HISTORY: The patient has a supportive family. No known substance use. REVIEW OF SYSTEMS: Admits to generalized body weakness with progressive bouts of dizziness and lightheadedness, worse on the day of admission. Also admits to bifrontal headaches and high-grade fevers ranging from 102-103 and associated chills and rigors. No chest pains or palpitations, but admits to episodic shortness of breath especially on exertion. Her oral intake has been extremely suboptimal with only preferential intake of liquids at home with supervening nausea, dyspepsia, and intractable vomiting with upper abdominal pain. Also, admits to episodic nocturia and polyuria. PHYSICAL EXAMINATION: GENERAL: Overweight female in no apparent distress. VITAL SIGNS: Blood pressure initially of 90/60 and now it is 124/80, pulse of 100 beats per minute and regular, temperature was 103 on admission and now is 100, and respirations 20. Height is 5 feet 2 inches and weight is 229 pounds. HEENT: Head, normocephalic. Eyes, anicteric with pink conjunctivae. Funduscopy is not possible at this time. Ears, nose and throat otherwise normal. NECK: Supple. Thyroid gland is normal in size. No carotid bruits or cervical adenopathy. HEART: Adynamic precordium. S1 and S2. Rapid and regular. LUNGS: Clear to auscultation. ABDOMEN: Obese and soft with positive bowel sounds. EXTREMITIES: No peripheral edema. Pulses are +2 bilaterally. LABORATORY DATA: Chemistries, BUN is 12, sodium 139, potassium 3.2, chloride 106, CO2 of 26, glucose 112 and creatinine 0.7. Her glucose levels today have ranged from 55-76 mg/dL. ASSESSMENT: This is a 43-year-old female with uncontrolled and decompensated type 2 insulin-requiring diabetes with extremes of glycemic fluctuations related to the variability of her oral intake and actually meal portions because of intractable vomiting and persistent nausea and dyspepsia and upper abdominal pain following a recent gastric sleeve bariatric surgical procedure as noted. She also has underlying morbid obesity, which contributes to the increased insulin resistance and further impaired glucose tolerance thereof. PLAN OF MANAGEMENT: We will modify her current insulin regimen and clearly lower the basal and bolus insulin drug combination as ordered. We will lower the Humalog to 6 units t.i.d. before meals to start today. We will also lower the Levemir to 20 units subcu at bedtime daily to start tonight. We will titrate incrementally as indicated to optimize metabolic control. We will modify the coverage scale to obviate hypoglycemia and detailed orders have been given. We will follow and advise accordingly. We may also consider actually discontinuing her Humalog insulin and switch her over to oral hypoglycemic therapy as indicated. Janett Powers MD
[2019-02-15 07:01] LABS: BASO % 0.5 % (0.0-2.0); EOS # 0.1 K/uL (0.0-0.7); EOS % 2.2 % (0.0-4.0); HEMOGLOBIN 10.2 g/dL (12.0-16.0); LYMPH # 0.8 K/uL (1.0-4.3); LYMPH % 17.4 % (20.0-40.0); MEAN CELL VOLUME 82.6 fl (81.0-99.0); MEAN CORPUSCULAR HEMOGLOBIN 26.4 pg (27.0-31.0); MEAN CORPUSCULAR HGB CONC 31.9 g/dL (33.0-37.0); MEAN PLATELET VOLUME 10.3 fl (7.2-11.7); MONO # 0.6 K/uL (0.0-0.8); MONO % 14.6 % (0.0-10.0); NEUT # 2.8 K/uL (1.8-7.0); NEUT % 65.3 % (50.0-75.0); RBC 3.86 Mil/uL (3.80-5.20); RED CELL DISTRIBUTION WIDTH 15.1 % (11.5-14.5); WHITE BLOOD COUNT 4.4 K/uL (4.8-10.8)
[2019-02-15 07:08] LABS: ALB/GLOB RATIO 0.9 (1.0-2.1); ALBUMIN 2.9 g/dL (3.5-5.0); ALT/SGPT 43 U/L (9-52); AST/SGOT 42 U/L (14-36); BLOOD UREA NITROGEN 9 mg/dl (7-17); GFR NON-AFRICAN AMERICAN > 60; HDL CHOLESTEROL 9 MG/DL (30-70)
[2019-02-15 07:15] LABS: LDL CHOLESTEROL 42 mg/dL (0-129)
[2019-02-15] MEDS: Insulin Lispro (humaLOG) 100 Units/ml Inj SC SCH ×7 (07:42→21:35)
[2019-02-15] MEDS: Ciprofloxacin 400mg/200ml D5W 400 MG/200 ML BAG IVPB SCH ×2 (09:27→21:35)
[2019-02-15] MEDS: KCL 40MEQ/NS 1L 1,000 ML IV SCH (09:28)
[2019-02-15] MEDS: Multivitamin With Minerals Tab PO SCH (09:29)
[2019-02-15] MEDS: Lactobacillus Acidophilus 500 MU Cap PO SCH ×2 (09:33→17:19)
--- NOTE | 2019-02-15 13:01 | CP.PCM.CON ---
History of Present Illness - History of Present Illness History of Present Illness: 43F , s/p Laparoscopic sleeve gastrectomy,was admitted for UTI/pyelonephritis and fouind to have C Diff from [facility] Patient states she had Laparoscopic sleeve gastrectomy on 02/02/[address] Hsu at [facility]. Admits to chills, fatigue and diarrhea. Was advised admission by her PMD Denies fever, cp , SOB, abd pain, constipation, incontinence, numbness/tingling, urinary frequency/urgency, or dysuria. PMH: Asthma, COPD, Depression, Diabetes (type II), HTN, Hypercholesterolemia, Hypothyroidism PSH: Laparoscopic sleeve gastrectomy, cholecystectomy, (x1) ALL: PCN Review of Systems - Review of Systems All systems: reviewed and no additional remarkable complaints except (as per HPI) Past Patient History - Infectious Disease Hx of Infectious Diseases: None - Past Medical History & Family History Past Medical History?: Yes - Past Social History Smoking Status: Former Smoker - CARDIAC Hx Hypercholesterolemia: Yes Hx Hypertension: Yes - PULMONARY Hx Asthma: Yes Hx Chronic Obstructive Pulmonary Disease (COPD): Yes - NEUROLOGICAL Hx Neurological Disorder: No - HEENT Hx HEENT Problems: Yes Other/Comment: Use Eyeglasses - RENAL Hx Chronic Kidney Disease: No - ENDOCRINE/METABOLIC Hx Hypothyroidism: Yes - HEMATOLOGICAL/ONCOLOGICAL Hx Blood Disorders: No - INTEGUMENTARY Hx Dermatological Problems: No - MUSCULOSKELETAL/RHEUMATOLOGICAL Hx Musculoskeletal Disorders: Yes Hx Falls: No - GASTROINTESTINAL Hx Gastrointestinal Disorders: No - GENITOURINARY/GYNECOLOGICAL Hx Genitourinary Disorders: No - PSYCHIATRIC Hx Depression: Yes Hx Substance Use: No - SURGICAL HISTORY Hx Cholecystectomy: Yes - ANESTHESIA Hx Anesthesia: Yes Hx Anesthesia Reactions: No Hx Malignant Hyperthermia: No Meds Allergies/Adverse Reactions: Allergies Allergy/AdvReac Type Severity Reaction Status Date / Time Penicillins Allergy ANAPHYLAXIS Verified 02/11/19 17:33 - Medications Medications: Current Medications Acetaminophen (Tylenol 325mg Tab) 650 mg PO Q4 PRN PRN Reason: Fever >100.4 F Last Admin: 02/15/19 00:35 Dose: 650 mg Albuterol (Ventolin Hfa 90 Mcg/Actuation (8 G)) 2 puff IH Q6H PRN PRN Reason: Shortness of Breath Aspirin (Ecotrin) 81 mg PO QPM [facility] Last Admin: 02/14/19 18:36 Dose: 81 mg Atorvastatin Calcium (Lipitor) 20 mg PO QPM [facility] Last Admin: 02/14/19 18:37 Dose: 20 mg Gabapentin (Neurontin) 300 mg PO TID [facility] Last Admin: 02/15/19 12:47 Dose: 300 mg Gemfibrozil (Lopid) 600 mg PO BID [facility] Last Admin: 02/15/19 09:28 Dose: 600 mg Metronidazole (Flagyl 500mg/100ml Ns) 100 mls @ 100 mls/hr IVPB Q8 [facility]; Protocol Last Admin: 02/15/19 09:27 Dose: 100 mls/hr Ciprofloxacin (Cipro 400mg/200ml Dsw) 400 mg in 200 mls @ 200 mls/hr IVPB Q12 [facility]; Protocol Last Admin: 02/15/19 09:27 Dose: 200 mls/hr Insulin Detemir (Levemir) 20 units SC HS [facility] Last Admin: 02/14/19 23:06 Dose: Not Given Insulin Human Lispro (Humalog) 6 units SC ACTID [facility] Last Admin: 02/15/19 12:45 Dose: Not Given Insulin Human Lispro (Humalog) 0 units SC ACHS [facility] Last Admin: 02/15/19 12:45 Dose: Not Given Lactobacillus Acidophilus (Bacid Acidophilus) 1 cap PO BID [facility] Last Admin: 02/15/19 09:33 Dose: 1 cap Metoclopramide HCl (Reglan) 10 mg IVP Q6 PRN PRN Reason: Nausea/Vomiting Last Admin: 02/14/19 14:56 Dose: 10 mg Multivitamins/Minerals (Therapeutic-M Tab) 1 tab PO DAILY [facility] Last Admin: 02/15/19 09:29 Dose: 1 tab Fqfas-3-Hrzm Ethyl Esters (Lovaza) 1 gm PO QPM [facility] Last Admin: 02/14/19 18:37 Dose: 1 gm Sitagliptin Phosphate (Januvia) 100 mg PO DAILY [facility] Last Admin: 02/15/19 09:28 Dose: 100 mg Vancomycin HCl (Vancocin (Oral/Rectal Use)) 250 mg PO Q6H [facility]; Protocol Last Admin: 02/15/19 12:46 Dose: 250 mg Physical Exam - Constitutional Appears: Well, Non-toxic, Chronically Ill - Head Exam Head Exam: ATRAUMATIC, NORMAL INSPECTION, NORMOCEPHALIC - Eye Exam Eye Exam: EOMI, Normal appearance, PERRL Pupil Exam: NORMAL ACCOMODATION, PERRL - ENT Exam ENT Exam: Mucous Membranes Moist, Normal Exam - Neck Exam Neck exam: Positive for: Normal Inspection - Respiratory Exam Respiratory Exam: Clear to Auscultation Bilateral, NORMAL BREATHING PATTERN - Cardiovascular Exam Cardiovascular Exam: REGULAR RHYTHM - GI/Abdominal Exam GI & Abdominal Exam: Diminished Bowel Sounds, Distended, Guarding, Soft, Ten derness. absent: Rebound, Rigid Additional comments: redness at laparoscopic site above umbilicus - Rectal Exam Rectal Exam: Deferred - Exam Exam: NORMAL INSPECTION - Extremities Exam Extremities exam: Positive for: normal inspection - Back Exam Back exam: NORMAL INSPECTION - Neurological Exam Neurological exam: Alert, CN II-XII Intact, Normal Gait, Oriented x3, Reflexes Normal - Psychiatric Exam Psychiatric exam: Normal Affect, Normal Mood - Skin Skin Exam: Dry, Intact, Normal Color, Warm Results - Vital Signs Recent Vital Signs: Last Vital Signs Temp 99.5 F 02/15/19 08:30 Pulse 74 02/15/19 08:30 Resp 20 02/15/19 08:30 BP 128/62 02/15/19 08:30 Pulse Ox 97 02/15/19 08:30 - Labs Result Diagrams: 02/15/19 05:50 02/15/19 05:50 Labs: Laboratory Results - last 24 hr 02/14/19 02/14/19 02/15/19 16:14 21:46 05:50 WBC 4.4 L RBC 3.86 Hgb 10.2 L Hct 31.9 L MCV 82.6 MCH 26.4 L MCHC 31.9 L RDW 15.1 H Plt Count 139 MPV 10.3 Neut % (Auto) 65.3 Lymph % (Auto) 17.4 L Milam % (Auto) 14.6 H Eos % (Auto) 2.2 Baso % (Auto) 0.5 Neut # (Auto) 2.8 Lymph # (Auto) 0.8 L Milam # (Auto) 0.6 Eos # (Auto) 0.1 Baso # (Auto) 0.0 Sodium Potassium Chloride Carbon Dioxide Anion Gap BUN Creatinine Est GFR ( Amer) Est GFR (Non-Af Amer) POC Glucose (mg/dL) 78 90 Random Glucose Hemoglobin A1c Calcium Phosphorus Magnesium Total Bilirubin AST ALT Alkaline Phosphatase Total Protein Albumin Globulin Albumin/Globulin Ratio Triglycerides Cholesterol LDL Cholesterol Direct HDL Cholesterol 02/15/19 02/15/19 02/15/19 05:50 05:50 06:27 WBC RBC Hgb Hct MCV MCH MCHC RDW Plt Count MPV Neut % (Auto) Lymph % (Auto) Milam % (Auto) Eos % (Auto) Baso % (Auto) Neut # (Auto) Lymph # (Auto) Milam # (Auto) Eos # (Auto) Baso # (Auto) Sodium 142 Potassium 4.0 Chloride 109 H Carbon Dioxide 28 Anion Gap 9 L BUN 9 Creatinine 0.7 Est GFR ( Amer) > 60 Est GFR (Non-Af Amer) > 60 POC Glucose (mg/dL) 95 Random Glucose 83 Hemoglobin A1c 11.8 H Calcium 8.0 L Phosphorus 2.2 L Magnesium 1.6 Total Bilirubin 0.4 AST 42 H D ALT 43 Alkaline Phosphatase 54 Total Protein 6.0 L Albumin 2.9 L Globulin 3.1 Albumin/Globulin Ratio 0.9 L Triglycerides 215 H Cholesterol 86 LDL Cholesterol Direct 42 HDL Cholesterol 9 L 02/15/19 11:02 WBC RBC Hgb Hct MCV MCH MCHC RDW Plt Count MPV Neut % (Auto) Lymph % (Auto) Milam % (Auto) Eos % (Auto) Baso % (Auto) Neut # (Auto) Lymph # (Auto) Milam # (Auto) Eos # (Auto) Baso # (Auto) Sodium Potassium Chloride Carbon Dioxide Anion Gap BUN Creatinine Est GFR ( Amer) Est GFR (Non-Af Amer) POC Glucose (mg/dL) 137 H Random Glucose Hemoglobin A1c Calcium Phosphorus Magnesium Total Bilirubin AST ALT Alkaline Phosphatase Total Protein Albumin Globulin Albumin/Globulin Ratio Triglycerides Cholesterol LDL Cholesterol Direct HDL Cholesterol Assessment & Plan (1) C. difficile colitis Status: Acute (2) C. difficile diarrhea Status: Acute (3) C. difficile enteritis Status: Acute (4) Dehydration Status: Acute (5) Pyelonephritis Status: Acute (6) Abdominal pain Status: Acute (7) Diabetes mellitus type 2 in obese Status: Acute - Assessment and Plan (Free Text) Assessment: cont cipro for UTI PO Vanco/ IV Flagyl follow up with surgeon and PMD
--- NOTE | 2019-02-15 15:04 | PN ---
DATE: 02/15/2019 LOCATION: Room 411. SUBJECTIVE: This is a 43-year-old female with recent uncontrolled type 2 insulin-requiring diabetes, now being followed closely for metabolic management. Her glycemic levels are fluctuating but improved and the glucose values today have ranged from 95 to 137 mg/dL. It was 90 at bedtime last night. Her A1c however is 11.8 which is extremely elevated and indicative of suboptimal metabolic control of her diabetic condition even prior to this admission. Her chemistry showed a BUN of 90, sodium 142, potassium 4, chloride 109, CO2 of 28, glucose 83 and creatinine 0.7. ASSESSMENT: This is a 43-year-old female with uncontrolled and decompensated type 2 insulin-requiring diabetes presenting here with intractable nausea, dyspepsia and vomiting with generalized body weakness and is now being followed closely for metabolic management. She also had a prior gastric sleeve procedure with underlying morbid obesity undertaken as noted thereof. PLAN OF MANAGEMENT: We will continue the modified basal and bolus insulin regimen as ordered to allow for full dose equilibration as it was only started today as noted. We will continue her Humalog given as 6 units t.i.d. before meals and Levemir given as 20 units subcu at bedtime daily as given. We will modify the coverage scale to obviate hypoglycemia and detailed orders have been given. We will continue also the IV hydration as given to optimize her due to her lost fluids and electrolytes as noted. We will advance her diet now to a carb-consistent heart healthy diet as ordered. We will obtain serial chemistries and supplement accordingly as needed. Janett Powers MD
[2019-02-15] MEDS: Omega-3-Acid Ethyl Esters 1 GM Cap PO SCH (17:17)
[2019-02-15] MEDS: Insulin Detemir 100 Units/ml Inj SC SCH (21:36)
[2019-02-16] MEDS: metroNIDAZOLE 500mg/100ml NS 100 ML IVPB SCH ×3 (01:39→17:42)
[2019-02-16] MEDS: Vancomycin 500 mg (Oral/Rectal USE) PO SCH ×4 (01:41→21:29)
[2019-02-16] MEDS: Insulin Lispro (humaLOG) 100 Units/ml Inj SC SCH ×7 (06:58→21:39)
[2019-02-16] MEDS: Ciprofloxacin 400mg/200ml D5W 400 MG/200 ML BAG IVPB SCH ×2 (08:14→21:29)
[2019-02-16] MEDS: Lactobacillus Acidophilus 500 MU Cap PO SCH ×2 (08:14→17:41)
[2019-02-16] MEDS: Multivitamin With Minerals Tab PO SCH (08:17)
[2019-02-16 10:47] LABS: BASO % 0.3 % (0.0-2.0); EOS # 0.2 K/uL (0.0-0.7); EOS % 2.4 % (0.0-4.0); HEMOGLOBIN 10.8 g/dL (12.0-16.0); LYMPH # 0.8 K/uL (1.0-4.3); LYMPH % 11.8 % (20.0-40.0); MEAN CELL VOLUME 82.6 fl (81.0-99.0); MEAN CORPUSCULAR HEMOGLOBIN 26.3 pg (27.0-31.0); MEAN CORPUSCULAR HGB CONC 31.9 g/dL (33.0-37.0); MEAN PLATELET VOLUME 10.4 fl (7.2-11.7); MONO # 1.1 K/uL (0.0-0.8); MONO % 16.5 % (0.0-10.0); NEUT # 4.6 K/uL (1.8-7.0); RBC 4.12 Mil/uL (3.80-5.20); WHITE BLOOD COUNT 6.6 K/uL (4.8-10.8)
[2019-02-16 10:57] LABS: ALBUMIN 3.1 g/dL (3.5-5.0); ALT/SGPT 36 U/L (9-52); AST/SGOT 41 U/L (14-36); BLOOD UREA NITROGEN 8 mg/dl (7-17); CALCIUM 7.9 mg/dL (8.4-10.2); GFR NON-AFRICAN AMERICAN > 60
[2019-02-16] MEDS ORDERED: Potassium Chloride 20 mEq ER Tab PO ONE (12:30)
--- NOTE | 2019-02-16 14:02 | PN ---
DATE: 02/16/2019 SUBJECTIVE: The patient seen in bed. No complaints. No distress. No fever, chills, nausea, vomiting, or diarrhea. No complaints of dizziness or weakness at this time. All labs and imaging, consults of the day have been reviewed. The patient's urine culture came back E. coli sensitive to Cipro. REVIEW OF SYSTEMS: Negative at this time. PHYSICAL EXAMINATION: CONSTITUTIONAL: Awake, alert, oriented. HEENT: Normal. CARDIAC: S1 and S2. Regular rate and rhythm. No murmurs, rubs, or gallops. LUNGS: Clear lung ribera bilaterally. ABDOMEN: Soft, nontender. Bowel sounds x4. EXTREMITIES: Distal pulses and motor sensation intact. Capillary refill is brisk. DIAGNOSES AND PLAN: 1. Clostridium difficile colitis. Continue consults. Continue vancomycin p.o. as tolerated. Questionable discharge in the a.m. 2. Pyelonephritis, urinary tract infection, Escherichia coli sensitive to Cipro. Continue same. We will discuss with Infectious Disease about discharge in a.m. on oral Cipro. 3. Deep venous thrombosis prophylaxis, sequential compression devices, A-hose, ambulation. 4. Status post bariatric surgery Continue appropriate diet; which the patient at this time is clear liquids. The patient to advance post discharge as per her bariatric surgeon. Weight and chronic conditions to be monitored by her primary care physician. JASON Parra STONEY
--- NOTE | 2019-02-16 15:07 | PN ---
DATE: 02/16/2019 LOCATION: Room 411. SUBJECTIVE: This is a 43-year-old female with recent uncontrolled type 2 insulin-requiring diabetes presenting here with acute pyelonephritis and history of recurrent UTI and is now being followed closely for metabolic management. Her glycemic levels are fluctuating but improved and the glucose values overnight have ranged from 160 to 186 and 239 mg/dL. Her chemistry showed a BUN of 8, sodium 139, potassium 3.3, chloride 103, CO2 of 26, glucose 197, and creatinine of 0.7. ASSESSMENT: This is a 43 year-old female with uncontrolled and decompensated type 2 insulin-requiring diabetes with transient glycemic accelerations with intercurrent infection which is a physical stressor contributing to the increased insulin resistance and further impaired glucose tolerance thereof. PLAN OF MANAGEMENT: We will continue the modified basal and bolus insulin regimen as given. We will continue the Levemir given as 24 units subcu at bedtime daily as ordered. We will also continue the Humalog given as 6 units t.i.d. before meals as given. We will titrate incrementally as indicated to optimize metabolic control. We will obtain serial chemistries accordingly. Janett Powers MD
[2019-02-16] MEDS: Omega-3-Acid Ethyl Esters 1 GM Cap PO SCH (17:40)
[2019-02-16] MEDS ORDERED: Insulin Detemir 100 Units/ml Inj SC SCH (22:00)
[2019-02-17] MEDS: metroNIDAZOLE 500mg/100ml NS 100 ML IVPB SCH ×2 (02:12→10:38)
[2019-02-17] MEDS: Vancomycin 500 mg (Oral/Rectal USE) PO SCH ×2 (02:13→13:50)
[2019-02-17 05:51] LABS: BASO # 0.1 K/uL (0.0-0.2); BASO % 2.1 % (0.0-2.0); EOS # 0.2 K/uL (0.0-0.7); EOS % 3.7 % (0.0-4.0); HEMOGLOBIN 10.9 g/dL (12.0-16.0); LYMPH # 0.9 K/uL (1.0-4.3); LYMPH % 15.4 % (20.0-40.0); MEAN CELL VOLUME 81.9 fl (81.0-99.0); MEAN CORPUSCULAR HEMOGLOBIN 26.5 pg (27.0-31.0); MEAN CORPUSCULAR HGB CONC 32.3 g/dL (33.0-37.0); MEAN PLATELET VOLUME 10.5 fl (7.2-11.7); MONO # 0.8 K/uL (0.0-0.8); MONO % 13.3 % (0.0-10.0); NEUT # 3.8 K/uL (1.8-7.0); NEUT % 65.5 % (50.0-75.0); RBC 4.11 Mil/uL (3.80-5.20); WHITE BLOOD COUNT 5.8 K/uL (4.8-10.8)
[2019-02-17 05:59] LABS: ALBUMIN 3.1 g/dL (3.5-5.0); ALT/SGPT 42 U/L (9-52); AST/SGOT 45 U/L (14-36); BLOOD UREA NITROGEN 7 mg/dl (7-17); CALCIUM 8.2 mg/dL (8.4-10.2); GFR NON-AFRICAN AMERICAN > 60
[2019-02-17] MEDS: Insulin Lispro (humaLOG) 100 Units/ml Inj SC SCH (09:00)
[2019-02-17] MEDS: Ciprofloxacin 400mg/200ml D5W 400 MG/200 ML BAG IVPB SCH (09:30)
[2019-02-17] MEDS: Multivitamin With Minerals Tab PO SCH (09:30)
--- NOTE | 2019-02-17 10:34 | CP.PCM.PN ---
Subjective - Date & Time of Evaluation Date of Evaluation: 02/17/19 Time of Evaluation: 08:00 - Subjective Subjective: afebrile in NAD'diarrhea resolved Objective - Vital Signs/Intake and Output Vital Signs (last 24 hours): Temp Pulse Resp BP Pulse Ox 97.4 F L 65 20 99/60 L 97 02/17/19 07:52 02/17/19 07:52 02/17/19 07:52 02/17/19 07:52 02/17/19 07:52 - Medications Medications: Current Medications Acetaminophen (Tylenol 325mg Tab) 650 mg PO Q4 PRN PRN Reason: Fever >100.4 F Last Admin: 02/15/19 00:35 Dose: 650 mg Albuterol (Ventolin Hfa 90 Mcg/Actuation (8 G)) 2 puff IH Q6H PRN PRN Reason: Shortness of Breath Aspirin (Ecotrin) 81 mg PO QPM [facility] Last Admin: 02/16/19 17:41 Dose: 81 mg Atorvastatin Calcium (Lipitor) 20 mg PO QPM [facility] Last Admin: 02/16/19 17:42 Dose: 20 mg Gabapentin (Neurontin) 300 mg PO TID [facility] Last Admin: 02/16/19 17:40 Dose: 300 mg Gemfibrozil (Lopid) 600 mg PO BID [facility] Last Admin: 02/16/19 17:40 Dose: 600 mg Metronidazole (Flagyl 500mg/100ml Ns) 100 mls @ 100 mls/hr IVPB Q8 [facility]; Protocol Last Admin: 02/17/19 02:12 Dose: 100 mls/hr Ciprofloxacin (Cipro 400mg/200ml Dsw) 400 mg in 200 mls @ 200 mls/hr IVPB Q12 [facility]; Protocol Last Admin: 02/16/19 21:29 Dose: 200 mls/hr Insulin Detemir (Levemir) 24 units SC HS [facility] Last Admin: 02/16/19 21:38 Dose: 24 units Insulin Human Lispro (Humalog) 6 units SC ACTID [facility] Last Admin: 02/17/19 09:00 Dose: 6 units Insulin Human Lispro (Humalog) 0 units SC ACHS [facility] Last Admin: 02/16/19 21:39 Dose: Not Given Lactobacillus Acidophilus (Bacid Acidophilus) 1 cap PO BID [facility] Last Admin: 02/16/19 17:41 Dose: 1 cap Metoclopramide HCl (Reglan) 10 mg IVP Q6 PRN PRN Reason: Nausea/Vomiting Last Admin: 02/16/19 13:57 Dose: 10 mg Multivitamins/Minerals (Therapeutic-M Tab) 1 tab PO DAILY [facility] Last Admin: 02/16/19 08:17 Dose: 1 tab Lwcty-0-Xfjx Ethyl Esters (Lovaza) 1 gm PO QPM [facility] Last Admin: 02/16/19 17:40 Dose: 1 gm Sitagliptin Phosphate (Januvia) 100 mg PO DAILY [facility] Last Admin: 02/17/19 09:44 Dose: 100 mg Vancomycin HCl (Vancocin (Oral/Rectal Use)) 250 mg PO Q6H [facility]; Protocol Last Admin: 02/17/19 02:13 Dose: 250 mg - Labs Labs: 02/17/19 05:35 02/17/19 05:35 - Constitutional Appears: Non-toxic, Chronically Ill - Head Exam Head Exam: ATRAUMATIC, NORMAL INSPECTION, NORMOCEPHALIC - Eye Exam Eye Exam: EOMI, Normal appearance, PERRL Pupil Exam: NORMAL ACCOMODATION, PERRL - ENT Exam ENT Exam: Mucous Membranes Moist, Normal Exam - Neck Exam Neck Exam: Full ROM, Normal Inspection. absent: Lymphadenopathy - Respiratory Exam Respiratory Exam: Decreased Breath Sounds, Clear to Ausculation Bilateral - Cardiovascular Exam Cardiovascular Exam: REGULAR RHYTHM, +S1, +S2. absent: Murmur - GI/Abdominal Exam GI & Abdominal Exam: Distended, Soft, Normal Bowel Sounds. absent: Tenderness - Rectal Exam Rectal Exam: Deferred - Extremities Exam Extremities Exam: Full ROM, Normal Capillary Refill, Normal Inspection. absent: Joint Swelling, Pedal Edema - Back Exam Back Exam: NORMAL INSPECTION - Neurological Exam Neurological Exam: Alert, Awake, CN II-XII Intact, Normal Gait, Oriented x3 - Psychiatric Exam Psychiatric exam: Normal Affect, Normal Mood - Skin Skin Exam: Dry, Intact, Normal Color, Warm Assessment and Plan (1) C. difficile colitis Status: Acute (2) C. difficile diarrhea Status: Acute (3) C. difficile enteritis Status: Acute (4) Dehydration Status: Acute (5) Pyelonephritis Status: Acute (6) Abdominal pain Status: Acute (7) Diabetes mellitus type 2 in obese Status: Acute - Assessment and Plan (Free Text) Assessment: d/c home on PO Vanco to complete 14 days cipro for 5 more days
[2019-02-17] MEDS: Lactobacillus Acidophilus 500 MU Cap PO SCH (10:39)
--- NOTE | 2019-02-17 13:48 | CP.PCM.PN ---
Subjective - Date & Time of Evaluation Date of Evaluation: 02/17/19 Time of Evaluation: 13:47 - Subjective Subjective: pt doing well w/o f/c, n/v/d. no complaints at present. am labs noted. Objective - Vital Signs/Intake and Output Vital Signs (last 24 hours): Temp Pulse Resp BP Pulse Ox 98.3 F 65 18 130/82 97 02/17/19 12:00 02/17/19 12:00 02/17/19 12:00 02/17/19 12:00 02/17/19 12:00 - Medications Medications: Current Medications Acetaminophen (Tylenol 325mg Tab) 650 mg PO Q4 PRN PRN Reason: Fever >100.4 F Last Admin: 02/15/19 00:35 Dose: 650 mg Albuterol (Ventolin Hfa 90 Mcg/Actuation (8 G)) 2 puff IH Q6H PRN PRN Reason: Shortness of Breath Aspirin (Ecotrin) 81 mg PO QPM [facility] Last Admin: 02/16/19 17:41 Dose: 81 mg Atorvastatin Calcium (Lipitor) 20 mg PO QPM [facility] Last Admin: 02/16/19 17:42 Dose: 20 mg Gabapentin (Neurontin) 300 mg PO TID [facility] Last Admin: 02/17/19 09:30 Dose: 300 mg Gemfibrozil (Lopid) 600 mg PO BID [facility] Last Admin: 02/17/19 09:30 Dose: 600 mg Metronidazole (Flagyl 500mg/100ml Ns) 100 mls @ 100 mls/hr IVPB Q8 [facility]; Protocol Last Admin: 02/17/19 10:38 Dose: 100 mls/hr Ciprofloxacin (Cipro 400mg/200ml Dsw) 400 mg in 200 mls @ 200 mls/hr IVPB Q12 [facility]; Protocol Last Admin: 02/17/19 09:30 Dose: 200 mls/hr Insulin Detemir (Levemir) 24 units SC HS [facility] Last Admin: 02/16/19 21:38 Dose: 24 units Insulin Human Lispro (Humalog) 6 units SC ACTID [facility] Last Admin: 02/17/19 09:00 Dose: 6 units Insulin Human Lispro (Humalog) 0 units SC ACHS [facility] Last Admin: 02/16/19 21:39 Dose: Not Given Lactobacillus Acidophilus (Bacid Acidophilus) 1 cap PO BID [facility] Last Admin: 02/17/19 10:39 Dose: 1 cap Metoclopramide HCl (Reglan) 10 mg IVP Q6 PRN PRN Reason: Nausea/Vomiting Last Admin: 02/16/19 13:57 Dose: 10 mg Multivitamins/Minerals (Therapeutic-M Tab) 1 tab PO DAILY [facility] Last Admin: 02/17/19 09:30 Dose: 1 tab [id number] Ethyl Esters (Lovaza) 1 gm PO QPM [facility] Last Admin: 02/16/19 17:40 Dose: 1 gm Sitagliptin Phosphate (Januvia) 100 mg PO DAILY [facility] Last Admin: 02/17/19 09:44 Dose: 100 mg Vancomycin HCl (Vancocin (Oral/Rectal Use)) 250 mg PO Q6H [facility]; Protocol Last Admin: 02/17/19 02:13 Dose: 250 mg - Labs Labs: 02/17/19 05:35 02/17/19 05:35 - Constitutional Appears: Well, Non-toxic, No Acute Distress - Head Exam Head Exam: ATRAUMATIC, NORMAL INSPECTION, NORMOCEPHALIC - Eye Exam Eye Exam: EOMI, Normal appearance, PERRL Pupil Exam: NORMAL ACCOMODATION, PERRL - ENT Exam ENT Exam: Mucous Membranes Moist, Normal Exam - Neck Exam Neck Exam: Full ROM, Normal Inspection. absent: Lymphadenopathy - Respiratory Exam Respiratory Exam: Clear to Ausculation Bilateral, NORMAL BREATHING PATTERN - Cardiovascular Exam Cardiovascular Exam: REGULAR RHYTHM, RRR, +S1, +S2. absent: Murmur - GI/Abdominal Exam GI & Abdominal Exam: Soft, Normal Bowel Sounds. absent: Tenderness - Extremities Exam Extremities Exam: Full ROM, Normal Capillary Refill, Normal Inspection. absent: Joint Swelling, Pedal Edema - Back Exam Back Exam: NORMAL INSPECTION - Neurological Exam Neurological Exam: Alert, Awake, CN II-XII Intact, Normal Gait, Oriented x3 - Psychiatric Exam Psychiatric exam: Normal Affect, Normal Mood - Skin Skin Exam: Dry, Intact, Normal Color, Warm Assessment and Plan (1) DVT prophylaxis Assessment & Plan: scd and ae tika felton Status: Acute (2) Enterocolitis Assessment & Plan: cdiff po vanco ivf cipro id diet as tolerated Status: Acute (3) Pyelonephritis Assessment & Plan: cipro c/s noted ivf Status: Acute (4) Diabetes mellitus type 2 in obese Assessment & Plan: riss, endo fsbg, home meds Status: Acute
--- NOTE | 2019-02-17 15:25 | CP.PCM.PN ---
Subjective - Date & Time of Evaluation Date of Evaluation: 02/15/19 Time of Evaluation: 20:30 - Subjective Subjective: pt doing well. no f/c, n/v/d. gunner po. labs and c/s noted. Objective - Vital Signs/Intake and Output Vital Signs (last 24 hours): Temp Pulse Resp BP Pulse Ox 98.3 F 65 18 130/82 97 02/17/19 12:00 02/17/19 12:00 02/17/19 12:00 02/17/19 12:00 02/17/19 12:00 - Medications Medications: Current Medications Acetaminophen (Tylenol 325mg Tab) 650 mg PO Q4 PRN PRN Reason: Fever >100.4 F Last Admin: 02/15/19 00:35 Dose: 650 mg Albuterol (Ventolin Hfa 90 Mcg/Actuation (8 G)) 2 puff IH Q6H PRN PRN Reason: Shortness of Breath Aspirin (Ecotrin) 81 mg PO QPM [facility] Last Admin: 02/16/19 17:41 Dose: 81 mg Atorvastatin Calcium (Lipitor) 20 mg PO QPM [facility] Last Admin: 02/16/19 17:42 Dose: 20 mg Gabapentin (Neurontin) 300 mg PO TID [facility] Last Admin: 02/17/19 09:30 Dose: 300 mg Gemfibrozil (Lopid) 600 mg PO BID [facility] Last Admin: 02/17/19 09:30 Dose: 600 mg Metronidazole (Flagyl 500mg/100ml Ns) 100 mls @ 100 mls/hr IVPB Q8 [facility]; Protocol Last Admin: 02/17/19 10:38 Dose: 100 mls/hr Ciprofloxacin (Cipro 400mg/200ml Dsw) 400 mg in 200 mls @ 200 mls/hr IVPB Q12 [facility]; Protocol Last Admin: 02/17/19 09:30 Dose: 200 mls/hr Insulin Detemir (Levemir) 24 units SC HS [facility] Last Admin: 02/16/19 21:38 Dose: 24 units Insulin Human Lispro (Humalog) 6 units SC ACTID [facility] Last Admin: 02/17/19 09:00 Dose: 6 units Insulin Human Lispro (Humalog) 0 units SC ACHS [facility] Last Admin: 02/16/19 21:39 Dose: Not Given Lactobacillus Acidophilus (Bacid Acidophilus) 1 cap PO BID [facility] Last Admin: 02/17/19 10:39 Dose: 1 cap Metoclopramide HCl (Reglan) 10 mg IVP Q6 PRN PRN Reason: Nausea/Vomiting Last Admin: 02/16/19 13:57 Dose: 10 mg Multivitamins/Minerals (Therapeutic-M Tab) 1 tab PO DAILY [facility] Last Admin: 02/17/19 09:30 Dose: 1 tab Mefcc-8-Nnos Ethyl Esters (Lovaza) 1 gm PO QPM [facility] Last Admin: 02/16/19 17:40 Dose: 1 gm Sitagliptin Phosphate (Januvia) 100 mg PO DAILY [facility] Last Admin: 02/17/19 09:44 Dose: 100 mg Vancomycin HCl (Vancocin (Oral/Rectal Use)) 250 mg PO Q6H [facility]; Protocol Last Admin: 02/17/19 13:50 Dose: 250 mg - Labs Labs: 02/17/19 05:35 02/17/19 05:35
[2019-02-17 16:08] VITALS: BP 111/75; PULSE 80; RESP 16; TEMP 98; O2SAT 98
--- NOTE | 2019-02-17 23:08 | PN ---
DATE: 02/17/2019 ENDOCRINOLOGY FOLLOWUP NOTE LOCATION: Room 411. SUBJECTIVE: This is a 43-year-old female with recent uncontrolled type 2 insulin-requiring diabetes, presenting here with right flank pain and supervening pyelonephritis and currently receiving IV antibiotic management and is being followed closely also for metabolic management because of recent hyperglycemic accelerations as noted thereof. Her glycemic levels overnight are fluctuating but improved, and the glucose levels have ranged from 133 to 156 and 202 mg/dL. Her chemistry showed a BUN of 7, sodium 141, potassium 4, chloride 105, CO2 of 29, glucose 124 and creatinine 0.6. ASSESSMENT: This is a 43-year-old female with recent uncontrolled type 2 insulin-requiring diabetes with recent hyperglycemic accelerations and clearly a suboptimal metabolic control on a previous oral hypoglycemic therapy as given. PLAN OF MANAGEMENT: We will continue the modified basal and bolus insulin regimen as ordered to optimize metabolic control. We will continue the basal insulin given as Levemir at 24 units subcu at bedtime daily as given. We will continue also the prandial insulin with Humalog given as 6 units t.i.d. before meals as ordered. We will continue the low-dose correction scale using Humalog insulin as given. We will obtain serial chemistries and supplement accordingly as needed. We will follow. Janett Powers MD
--- NOTE | 2019-02-18 10:12 | CP.PCM.DIS ---
Provider - Provider Date of Admission: 02/13/19 00:55 Attending physician: Schuyler De Guzman MD Consults: 02/13/19 05:46 Surgery [General Surgery Consult] Routine Comment: Consulting Provider: Baldo Ellis Consulting Physician: Baldo Ellis Reason for Consult: gas bubbles collection on CT r/out abscess 02/13/19 18:18 Infectious Disease Consult Routine Comment: Consulting Provider: Mina Pritchard Consulting Physician: Mina Pritchard Reason for Consult: Stool c-diff positive 02/14/19 11:05 Endocrinology Consult Routine Comment: Patient has sleeve, BS dropped with insulin today Consulting Provider: Janett Powers Consulting Physician: Janett Powers Reason for Consult: To control her BS Time Spent in preparation of Discharge (in minutes): 15 Diagnosis - Discharge Diagnosis (1) DVT prophylaxis Status: Acute (2) Enterocolitis Status: Acute (3) Pyelonephritis Status: Acute (4) Diabetes mellitus type 2 in obese Status: Acute Hospital Course - Lab Results Lab Results: Micro Results 02/12/19 21:08 Blood-Venous Blood Culture - Final NO GROWTH AFTER 5 DAYS 02/12/19 21:08 Blood-Venous Gram Stain - Final TEST NOT PERFORMED 02/12/19 21:08 Blood-Venous Blood Culture - Final NO GROWTH AFTER 5 DAYS 02/12/19 21:08 Blood-Venous Gram Stain - Final TEST NOT PERFORMED 02/12/19 23:40 Urine,Clean Catch Urine Culture - Final Escherichia Coli Most Recent Lab Values WBC 5.8 K/uL (4.8-10.8) 02/17/19 05:35 RBC 4.11 Mil/uL (3.80-5.20) 02/17/19 05:35 Hgb 10.9 g/dL (12.0-16.0) L 02/17/19 05:35 Hct 33.7 % (34.0-47.0) L 02/17/19 05:35 MCV 81.9 fl (81.0-99.0) 02/17/19 05:35 MCH 26.5 pg (27.0-31.0) L 02/17/19 05:35 MCHC 32.3 g/dL (33.0-37.0) L 02/17/19 05:35 RDW 15.0 % (11.5-14.5) H 02/17/19 05:35 Plt Count 190 K/uL (130-400) 02/17/19 05:35 MPV 10.5 fl (7.2-11.7) 02/17/19 05:35 Neut % (Auto) 65.5 % (50.0-75.0) 02/17/19 05:35 Lymph % (Auto) 15.4 % (20.0-40.0) L 02/17/19 05:35 [place] % (Auto) 13.3 % (0.0-10.0) H 02/17/19 05:35 Eos % (Auto) 3.7 % (0.0-4.0) 02/17/19 05:35 Baso % (Auto) 2.1 % (0.0-2.0) H 02/17/19 05:35 Neut # (Auto) 3.8 K/uL (1.8-7.0) 02/17/19 05:35 Lymph # (Auto) 0.9 K/uL (1.0-4.3) L 02/17/19 05:35 [place] # (Auto) 0.8 K/uL (0.0-0.8) 02/17/19 05:35 Eos # (Auto) 0.2 K/uL (0.0-0.7) 02/17/19 05:35 Baso # (Auto) 0.1 K/uL (0.0-0.2) 02/17/19 05:35 Sodium 141 mmol/l (132-148) 02/17/19 05:35 Potassium 4.0 MMOL/L (3.6-5.0) 02/17/19 05:35 Chloride 105 mmol/L (98-107) 02/17/19 05:35 Carbon Dioxide 29 mmol/L (22-30) 02/17/19 05:35 Anion Gap 11 (10-20) 02/17/19 05:35 BUN 7 mg/dl (7-17) 02/17/19 05:35 Creatinine 0.6 mg/dl (0.7-1.2) L 02/17/19 05:35 Est GFR ( Amer) > 60 02/17/19 05:35 Est GFR (Non-Af Amer) > 60 02/17/19 05:35 POC Glucose (mg/dL) 130 mg/dL (65-110) H 02/17/19 16:08 Random Glucose 124 mg/dL (65-105) H 02/17/19 05:35 Hemoglobin A1c 11.8 % (4.2-6.5) H 02/15/19 05:50 Lactic Acid 1.4 mmol/L (0.7-2.1) 02/12/19 21:08 Calcium 8.2 mg/dL (8.4-10.2) L 02/17/19 05:35 Phosphorus 2.8 mg/dl (2.5-4.5) 02/17/19 05:35 Magnesium 1.5 MG/DL (1.6-2.3) L 02/17/19 05:35 Total Bilirubin 0.5 mg/dl (0.2-1.3) 02/17/19 05:35 AST 45 U/L (14-36) H 02/17/19 05:35 ALT 42 U/L (9-52) 02/17/19 05:35 Alkaline Phosphatase 58 U/L (38-126) 02/17/19 05:35 Total Protein 6.3 G/DL (6.3-8.2) 02/17/19 05:35 Albumin 3.1 g/dL (3.5-5.0) L 02/17/19 05:35 Globulin 3.1 gm/dL (2.2-3.9) 02/17/19 05:35 Albumin/Globulin Ratio 1.0 (1.0-2.1) 02/17/19 05:35 Triglycerides 215 mg/DL (0-149) H 02/15/19 05:50 Cholesterol 86 mg/dL (0-199) 02/15/19 05:50 LDL Cholesterol Direct 42 mg/dL (0-129) 02/15/19 05:50 HDL Cholesterol 9 MG/DL (30-70) L 02/15/19 05:50 Lipase 79 U/L (23-300) 02/12/19 21:08 Urine Color [place] (YELLOW) 02/12/19 23:40 Urine Clarity Cloudy (Clear) 02/12/19 23:40 Urine pH 6.0 (5.0-8.0) 02/12/19 23:40 Ur Specific [place] 1.030 (1.003-1.030) 02/12/19 23:40 Urine Protein 100 mg/dL (NEGATIVE) 02/12/19 23:40 Urine Glucose (UA) 50 mg/dL (NEGATIVE) 02/12/19 23:40 Urine Ketones Trace mg/dL (NEGATIVE) 02/12/19 23:40 Urine Blood Moderate (NEGATIVE) 02/12/19 23:40 Urine Nitrate Negative (NEGATIVE) 02/12/19 23:40 Urine Bilirubin Negative (NEGATIVE) 02/12/19 23:40 Urine Urobilinogen 4.0 mg/dL (0.2-1.0) H 02/12/19 23:40 Ur Leukocyte Esterase Large Dk/uL (Negative) 02/12/19 23:40 Urine RBC (Auto) 16 /hpf (0-3) H 02/12/19 23:40 Urine WBC Clumps (Auto) Mod /hpf (NONE) H 02/12/19 23:40 Urine Microscopic WBC 412 /hpf (0-5) H 02/12/19 23:40 Ur Squamous Epith Cells 1 /hpf (0-5) 02/12/19 23:40 Urine Bacteria Mod (<OCC) H 02/12/19 23:40 Hyaline Casts 3-5 /hpf (0-2) H 02/12/19 23:40 C. difficile Ag & Toxin Positive antigen (NEGATIVE) 02/13/19 16:47 - Hospital Course Hospital Course: pt admitted for cdiff, uti, pyelonpehritis.rec'd oral and iv anbx c/s noted Discharge Exam - Head Exam Head Exam: ATRAUMATIC, NORMAL INSPECTION, NORMOCEPHALIC Discharge Plan - Discharge Medications Prescriptions: Ciprofloxacin HCl [Cipro] 500 mg PO BID #12 tablet Insulin Detemir [Levemir] 24 units SC HS #1 vial Lactobacillus Acidophilus [Bacid Acidophilus] 1 cap PO BID #60 cap Multimineral/Multivitamin [Therapeutic-M Tab] 1 tab PO DAILY #30 tab Vancomycin [Vancocin (Oral/Rectal USE)] 250 mg PO Q6H #40 dose - Follow Up Plan Condition: FAIR Disposition: HOME/ ROUTINE Instructions: Sepsis, Adult (DC), Clostridium difficile (DC), Kidney Infection (DC) Additional Instructions: follow up appt with pmd in 2-3 days final dx-pyelonephritis, uti, cdiff colitis doing well, gunner po. activity as gunner. no complaints. f/u pmd, gi, uro, bariatric surgery Referrals: Pepe Trotter MD [Staff Provider] - Mark Baird, SURINDER, [employer] [Advanced Practice Nurse] -
--- NOTE | 2019-02-22 19:09 | PQF ---
PROVIDER RESPONSE TEXT: Sepsis r/o, blood cultures negative REVIEWER QUERY TEXT: Rule Out Sepsis Clarification Sepsis is documented in the Medical Record. Please clarify whether: -- Patient has sepsis - Please document confirmed, suspected or probable causative organism - Please document confirmed, suspected or probable localized infection - Please clarify if sepsis is related to a device - Please clarify if sepsis was present on admission -- Sepsis was ruled out (include corresponding diagnosis for patient?s clinical picture and treatment ) -- Patient had sepsis which is resolved -- Other, please specify The patient's Clinical Indicators include: ER Physician Documentation Report documented Sepsis. Query created by: Alisia Warren on 02/20/2019 5:41 PM Electronically signed by: Mark Baird APN 02/22/2019 7:06 PM
== END 2019-02-17 17:50 | disposition home or self-care (01) | DRG 320 ==
LOC: H.ER 19:43 → H.ERHOLD 02-13 00:55 → H.TEL 02-13 02:22
PROVIDERS: ADMIT Family Medicine; ATTEND Family Medicine
DX: N12 Tubulo-interstitial nephritis, not specified as acute or chronic (principal); J44.9 Chronic obstructive pulmonary disease, unspecified; E11.42 Type 2 diabetes mellitus with diabetic polyneuropathy; E11.65 Type 2 diabetes mellitus with hyperglycemia; A04.72 Enterocolitis due to Clostridium difficile, not specified as recurrent; E87.6 Hypokalemia; K52.9 Noninfective gastroenteritis and colitis, unspecified; E03.9 Hypothyroidism, unspecified; E66.01 Morbid (severe) obesity due to excess calories; Z68.41 Body mass index [BMI] 40.0-44.9, adult; I10 Essential (primary) hypertension; E78.00 Pure hypercholesterolemia, unspecified; Z98.84 Bariatric surgery status; Z87.891 Personal history of nicotine dependence; Z88.0 Allergy status to penicillin; F32.9 Major depressive disorder, single episode, unspecified; E86.0 Dehydration; B96.20 Unspecified Escherichia coli [E. coli] as the cause of diseases classified elsewhere